=== PATIENT | female | born 1990 | race Caucasian/White ===

== ENCOUNTER → 2019-07-21 14:52 | Outpatient (CLI) | payer BC, SELFPAY ==
[2019-07-21 13:39] VITALS: BMI 29.5
[2019-07-21 15:22] LABS: Absolute Lymphocyte Count 2.48 X10^3/uL (0.83-4.51); Absolute Neutrophil Count 7.2 X10^3/uL (2.0-7.7); Basophil# 0.04 X10^3/uL; Basophil% 0.4 % (0-1); Eosinophil# 0.07 X10^3/uL; Eosinophils% 0.7 % (0-5); Hematocrit 41.7 % (37-47); Hemoglobin 14.3 g/dL (12.0-15.0); Lymphocyte # 2.48 X10^3/ul (4.0); Lymphocyte % 23.9 % (19-41); Mean Corp Hgb Conc 34.3 g/dL (32-36); Mean Corpuscular Hgb 28.6 pg (27.0-32.0); Mean Corpuscular Volume 83.4 fL (81-99); Mean Platelet Vol. 9.4 fl (6.2-12.0); Monocyte# 0.58 X10^3/uL; Monocyte% 5.6 % (0-10); NRBC Flagged by Analyzer 0 % (0-5); Neutrophil # 7.18 X10^3/uL (2.7-7.7); Neutrophil % 69.1 % (47-70); Platelet Count 241 K/mm3 (150-450); RBC Distribution Width CV 11.9 % (11.6-14.6); RBC Distribution Width SD 36.2 fl (35.1-43.9); White Blood Count 10.4 K/mm3 (4.4-11.0)
[2019-07-21 20:56] LABS: Chlamydia Trachomatis by PCR Negative (Negative); Neisserai gonorrhoeae by PCR Negative (Negative); Probe Check PASS; Sample Adequacy Control PASS; Specimen Processing Control PASS
[2019-07-22 03:08] LABS: Rapid Plasmin Reagin (RPR) NONREACTIVE (NONREACTIVE)
[2019-07-22 11:39] LABS: HIV - WCH Non-Reactive (Nonreactive); Hepatitis B Surface Antigen Non-Reactive (Nonreactive); Rubella IgG 58.5 IU/mL
== END ==
PROVIDERS: Referring Provider Obstetrics & Gynecology; Visit Provider Obstetrics & Gynecology
DX: Z34.81 Encounter for supervision of other normal pregnancy, first trimester (principal)
CPT/HCPCS: 36415; 85025; 86592; 86703; 86762; 86850; 86900; 86901; 87086; 87340; 87491; 87591

== ENCOUNTER → 2019-08-17 13:47 | Outpatient (CLI) | payer BC, SELFPAY ==
[2019-08-16 11:47] VITALS: BMI 29.5
--- NOTE | 2019-08-17 13:50 | US_ITS ---
STUDY: SECOND AND THIRD TRIMESTER OBSTETRICAL ULTRASOUND - LIMITED REASON FOR EXAM: Female, 28 years old. growth. LMP: 05/10/2019 PRIOR ULTRASOUND: None. TECHNIQUE: Transabdominal ultrasound evaluation was performed. FINDINGS: There is a single intrauterine fetus. position is variable. There is demonstrated cardiac activity with a heart rate of 147 bpm. There is a normal amniotic fluid volume. The placenta is posterior in location and is not low lying. There are Grade 0 placental changes. The cervix measures 4.67 cm in length. BIOMETRY: BPD: 2.62 cm: 14 weeks, 5 days HC: 9.75 cm: 14 weeks, 4 days AC: 8.12 cm: 14 weeks, 4 days FL: 1.35 cm: 14 weeks, 0 days Age by LMP: 14 weeks, 1 days. EMILEE by LMP: 02/14/2020. age by current US: 14 weeks, 4 days. EMILEE by current US: 02/11/2020. Estimated weight: 94 grams, +/- 14 grams, 42 percentile. The adnexal regions are not well visualized. US/OB Limited With Biometrics IMPRESSION: Single live intrauterine gestation at approximately 14 weeks and 4 days based on the current ultrasound. Electronically Signed: Grzegorz Mccullough, at 14:45 EST Tel , Service support ,
== END ==
PROVIDERS: Referring Provider Obstetrics & Gynecology; Visit Provider Obstetrics & Gynecology
DX: Z34.90 Encounter for supervision of normal pregnancy, unspecified, unspecified trimester (principal)
CPT/HCPCS: 76816

== ENCOUNTER → 2019-10-06 12:17 | Outpatient (CLI) | payer BC, SELFPAY ==
[2019-09-13 13:14] VITALS: BMI 29.5
--- NOTE | 2019-10-06 12:17 | US_ITS ---
STUDY: SECOND AND THIRD TRIMESTER OBSTETRICAL ULTRASOUND REASON FOR EXAM: Female, 28 years old. Anatomy LMP: May 10, 2019. TECHNIQUE: Transabdominal TECHNICAL QUALITY: Adequate. PRIOR ULTRASOUND: August 17, 2019. FINDINGS: There is a single intrauterine fetus. The fetus is in a transverse lie with the head on the maternal right side. There is demonstrated cardiac activity with a heart rate of 147 bpm. There is a normal amniotic fluid volume. The largest amniotic fluid pocket measures 3.98 cm. The placenta is posterior in location and is not low lying. There are Grade 0 placental changes. The cervix measures 3.18 cm in length. The adnexal regions are not visualized. BIOMETRY: BPD: 5.05 cm: 21 weeks, 2 days HC: 18.97 cm: 21 weeks, 1 days AC: 16.81 cm: 21 weeks, 5 days FL: 3.55 cm: 21 weeks, 1 days CI: 35.09 FL/BPD: 70.28 FL/HC: 18.73 FL/AC: 21.04 HC/AC: 1.13 age by current US: 21 weeks, 4 days. EMILEE by current US: February 12, 2020. Estimated weight: 4:30 grams, +/- 64 grams, 48 %. age by prior US: 21 weeks, 6 days. EMILEE by prior US: February 11, 2020. Age by LMP: 21 weeks, 2 days. EMILEE by LMP: February 14, 2020. ANATOMY: Gender: Male Cranium: Normal lateral ventricles. Normal choroid plexus. Normal cerebellum. Normal cisterna magna. Normal face, nose and lips. Chest: Normal 4-chamber heart. Abdomen/Pelvis: Normal diaphragm. Normal stomach. Normal abdominal wall. Normal cord insertion. Normal 3 vessel cord. Normal kidneys. Normal bladder. Spine: Normal cervical spine. Normal thoracic spine. Normal lumbar spine. Normal sacrum. Extremities: Normal bilateral upper extremities. Normal bilateral lower extremities. US/OB Anatomy Scan IMPRESSION: 1. Live single intrauterine at 21 weeks, 4 days. EMILEE is February 12, 2020. There is adequate interval growth since prior study. 2. FW 430 g. 3. Adequate amniotic fluid. 4. Posterior grade 0 placenta. 5. Transverse presentation. 6. No evidence of anatomic abnormality. Electronically Signed: Mark Clark DO at 22:45 EST Tel [phone], Service support ,
== END ==
PROVIDERS: Referring Provider Obstetrics & Gynecology; Visit Provider Obstetrics & Gynecology
DX: Z34.92 Encounter for supervision of normal pregnancy, unspecified, second trimester (principal); Z3A.21 21 weeks gestation of pregnancy
CPT/HCPCS: 76805

== ENCOUNTER → 2019-11-12 10:01 | Outpatient (CLI) | payer BC, SELFPAY ==
[2019-11-12 09:54] VITALS: BMI 29.5
[2019-11-12 10:44] LABS: Absolute Neutrophil Count 6.4 X10^3/uL (2.0-7.7); Basophil# 0.03 X10^3/uL; Basophil% 0.3 % (0-1); Eosinophil# 0.05 X10^3/uL; Eosinophils% 0.6 % (0-5); Hematocrit 37.1 % (37-47); Hemoglobin 12.5 g/dL (12.0-15.0); Lymphocyte % 19.2 % (19-41); Mean Corp Hgb Conc 33.7 g/dL (32-36); Mean Corpuscular Hgb 29.8 pg (27.0-32.0); Mean Corpuscular Volume 88.5 fL (81-99); Mean Platelet Vol. 8.9 fl (6.2-12.0); Monocyte# 0.56 X10^3/uL; Monocyte% 6.3 % (0-10); NRBC Flagged by Analyzer 0 % (0-5); Neutrophil # 6.42 X10^3/uL (2.7-7.7); Neutrophil % 72.5 % (47-70); Platelet Count 164 K/mm3 (150-450); RBC Distribution Width CV 13.2 % (11.6-14.6); Red Blood Count 4.19 M/mm3 (4.2-5.4); White Blood Count 8.9 K/mm3 (4.4-11.0)
[2019-11-12 11:01] LABS: Glucose Challenge Gest 1H 50g 97 mg/dL (70-140)
== END ==
PROVIDERS: Visit Provider Obstetrics & Gynecology
DX: Z34.90 Encounter for supervision of normal pregnancy, unspecified, unspecified trimester (principal)
CPT/HCPCS: 36415; 82950; 85025

== ENCOUNTER → 2020-01-21 16:25 | Outpatient (CLI) | payer BC, SELFPAY ==
[2020-01-21 09:51] VITALS: BMI 29.5
== END ==
PROVIDERS: Referring Provider Obstetrics & Gynecology; Visit Provider Obstetrics & Gynecology
DX: Z3A.36 36 weeks gestation of pregnancy (principal)
CPT/HCPCS: 87081

== ENCOUNTER → 2020-02-04 10:36 | Outpatient (CLI) | payer BC, SELFPAY ==
[2020-02-04 10:03] VITALS: BMI 29.5
[2020-02-04 10:39] LABS: ROM Internal Control Test YES-OK TO RESULT pt. (Internal QC)
[2020-02-04 10:59] LABS: ROM Patient Test Negative (Negative)
== END ==
PROVIDERS: Visit Provider Obstetrics & Gynecology
DX: Z3A.38 38 weeks gestation of pregnancy (principal)
CPT/HCPCS: 84112

== ENCOUNTER 2020-02-05 09:45 | Inpatient (IN) | payer BC, SELFPAY ==
[2020-02-04 10:03] VITALS: BMI 29.5
[2020-02-05] VITALS (41 sets, daily range): BP systolic 84–138; BP diastolic 52–85; PULSE 42–122; RESP 20; TEMP 36.6–38.4; O2SAT 97–100; BMI 31.6
[2020-02-05] MEDS: Lactated Ringers 500 ML 999 ML IV (10:45)
[2020-02-05 11:03] LABS: Absolute Lymphocyte Count 2.03 X10^3/uL (0.83-4.51); Absolute Neutrophil Count 11.6 X10^3/uL (2.0-7.7); Basophil# 0.02 X10^3/uL; Basophil% 0.1 % (0-1); Eosinophil# 0.04 X10^3/uL; Eosinophils% 0.3 % (0-5); Hemoglobin 13.7 g/dL (12.0-15.0); Lymphocyte # 2.03 X10^3/ul (4.0); Lymphocyte % 13.6 % (19-41); Mean Corp Hgb Conc 34.3 g/dL (32-36); Mean Corpuscular Volume 87.5 fL (81-99); Mean Platelet Vol. 9.7 fl (6.2-12.0); Monocyte# 1.18 X10^3/uL; Monocyte% 7.9 % (0-10); NRBC Flagged by Analyzer 0 % (0-5); Neutrophil # 11.62 X10^3/uL (2.7-7.7); Neutrophil % 77.8 % (47-70); Platelet Count 174 K/mm3 (150-450); RBC Distribution Width CV 13.4 % (11.6-14.6); RBC Distribution Width SD 41.9 fl (35.1-43.9); Red Blood Count 4.57 M/mm3 (4.2-5.4); White Blood Count 14.9 K/mm3 (4.4-11.0)
[2020-02-05] MEDS: Lactated Ringers 1,000 ML 50 ML IV (11:30)
[2020-02-05] MEDS: fentaNYL-bupivacaine (epidural) 100 ML BAG EPIDURAL (11:40)
[2020-02-05] MEDS: Ondansetron 4 MG/2 ML Vial IV (13:17)
--- NOTE | 2020-02-05 13:58 | PCM.HP.OB ---
- Problem List (1) Supervision of normal Status: Acute Qualifiers: Comment: PRR EMILEE 02/14/20 boy [facility] [place], [place] (2) Status: Acute Qualifiers: Comment: nipt-low risk male. carrier, and ntd screening declined. Anatomy US normal. History Date of Admission: 02/05/20 Final EMILEE: 02/14/20 Gestational age: 38 Weeks and 5 Days History of this : This is a 29 year-old, , at 38 weeks gestational age resents in active labor with regular contractions. She has had some spotting but no loss of fluid. She admits good movement. She has had an uncomplicated . Medical History: Medical History (Last Reviewed 02/04/20 @ 09:59 by Monica Brandt) Back pain M54.9 Difficulty balancing R29.818 Fatigue R53.83 Migraines G43.909 SOB (shortness of breath) R06.02 Status post normal childbirth O80 Surgical History: Surgical History (Last Reviewed 02/04/20 @ 09:59 by Monica Brandt) History of tonsillectomy Z90.89 Allergies No Known Allergies Allergy (Verified 02/05/20 10:10) Home Medications: Home Medications Pnv No.95/Ferrous Fum/Folic AC [ Formula] 1 ea PO DAILY 08/14/17 Smoking Status: Never smoker Alcohol: None Substance Use Type: Sleep Aides Number of Fetus(es): 1 NST - FHR Rate Baby A Baseline: 120 Variability:: Moderate Accelerations:: 15 x 15 Decelerations:: None NST Reactive:: Yes FHR Category:: Category I Uterine Activity:: q 3-4 History Past Pregnancies: Past Pregnancies Pregancy History 3 Elective abortions Hx Para 2 Spontaneous abortions Hx # Term Pregnancies Ectopic pregnancies Hx # Pregnancies Multiple births # of living children Past Pregnancies Del. Date Name GA/Weeks Outcome Route Bth Weight Infant Gen Labor Lgth Anesthesia Del Locatn Provider FOB Unknown 2011 [place] live - full term 7lbs Female epidural [place] Unknown 2017 [place] 39 live - full term 7lbs 12oz Male epidural [place] Labs: Mom's Labs & Results 02/05/20 02/05/20 10:45 10:45 WBC 14.9 H RBC 4.57 Hgb 13.7 Hct 40.0 MCV 87.5 MCH 30.0 MCHC 34.3 RDW Std Deviation 41.9 RDW Coeff of Violetta 13.4 Plt Count 174 MPV 9.7 Immature Gran % (Auto) 0.300 Neut % (Auto) 77.8 H Lymph % (Auto) 13.6 L [place] % (Auto) 7.9 Eos % (Auto) 0.3 Baso % (Auto) 0.1 Absolute Neuts (auto) 11.6 H Absolute Lymphs (auto) 2.03 Nucleated RBC % 0 Blood Type O POSITIVE Antibody Screen NEGATIVE Course Did the patient receive Yes care? Labs Blood Type: O RH: POSITIVE RPR/VDRL/Syphilis Nonreactive Rubella status Immune HbSAg Negative Date Done: 07/21/19 Chlamydia Negative Gonorrhea Negative HIV/AIDS Non-Reactive Group B Strep: Negative Current Obstetrical History Gestational Diabetes No Incompetent Cervix No Infertility No IUGR No Macrosomia No Hypertension/Pre-eclampsia No Placenta Previa/Abruption No PTL/PROM No Uterine anomaly No Oligohydramnios No Polyhydramnios No Multiple gestation No Past Medical History Asthma No Diabetes No Hypertension No Heart disease No Mitral valve prolapse No Neurologic/Seizure disorder/ No Migraines Kidney disease No Liver disease No Varicosities No Clotting disorders/Hx of DVT No Thyroid Dysfunction No Other medical diseases No Psychiatric disorders No Major trauma No Abnormal PAP smear Yes: onver a year ago; resolved Sleep apnea No Mammogram in the last 2 years No Social History Marital Status: Alleged father Vahe Hx Smoking No Smoking Status Never smoker Substance Use Type Sleep Aides What date/time did you last benadryl in Sep use any of the above? Expected Delivery Method: Spontaneous Vaginal Review of Systems Constitutional: Denies: Fever, Malaise Eyes: Denies: Blurred vision, Vision Change HEENT: Denies: Head Aches, Visual Changes Cardiovascular: Denies: Chest Pain, Palpitations Respiratory: Denies: Cough, Shortness of Breath, Wheezing Gastrointestinal: Denies: Abdominal Pain, Diarrhea, Nausea, Vomiting Genitourinary: Denies: Dysuria, Hematuria Musculoskeletal: Denies: Joint Pain, Muscle pain Skin: Denies: Lesions, Rash Neurological: Denies: Blurred vision, Focal weakness, Headaches Psychiatric: Denies: Anxiety, Depression Endocrine: Denies: Heat/ Cold Intolerance Hematologic/ Lymphatic: Denies: Easy Bruising, Easy Bleeding Physical Exam Vitals: Vital Signs Temp Pulse BP Pulse Ox 98.2 F 75 96/54 L 99 02/05/20 13:23 02/05/20 13:03 02/05/20 13:03 02/05/20 13:16 General: Alert, Cooperative, No apparent distress HEENT: Atraumatic, Normocephalic. Negative for: Thyromegaly, Lymphadenopathy Cardiovascular: Regular rate Lungs: Normal air movement Abdomen: Soft, Non Tender, Gravid Neurological: Deep Tendon Reflexes 2+/4 and Symmetrical, Neuro grossly intact. Negative for: Clonus [employer]: Normal external genitalia. Negative for: Vulvar lesions Estimated gestational size: Appropriate for gestational size Presentation: Cephalic Cervix Dilation (cm): 5 Assessment/Plan All Active Problems (Last Reviewed 02/04/20 @ 09:59 by Monica Brandt) Supervision of normal (Acute) (Acute) Bleeding in early (Resolved) URI, acute (Resolved) This is a 29 year-old, at 38 weeks gestational age presents IAL. .Patient presents IAL, plan expectant management for , Pitocin/AROM if needed. Pain management: Plans epidural. GBS neg. Management of any complications: None I have reviewed the [facility] and made any clinically relevant updates.
--- NOTE | 2020-02-05 15:07 | OP.PCM_ITS ---
Problem List (1) Supervision of normal Status: Acute Qualifiers: Comment: PRR EMILEE 02/14/20 boy deanna [place] Vahe (2) Status: Acute Qualifiers: Comment: nipt-low risk male. carrier, and ntd screening declined. Anatomy US normal. Vaginal Delivery Maternal Presentation: Active Labor 9-year-old G3, P2 at 38 weeks presents in active labor 5 cm dilated Amniotic Membrane Rupture Type: Artificial Amniotic Fluid Description: Clear Final EMILEE: 02/14/20 Gestational age: 38 Weeks and 5 Days Date of Procedure: 02/05/20 Pre-Operative Diagnosis: In active labor Post-Operative Diagnosis: Same Surgery/ Procedure Performed: Spontaneous Vaginal Delivery Type of Anesthesia: Epidural Description of Procedure: Patient began pushing and delivered the head in the BALTAZAR presentation. The head was delivered atraumatically . The anterior and posterior shoulders delivered without complication followed by the rest of the and the was placed on the maternal abdomen. Delayed cord clamping was employed for approximately 60 seconds. Cord was clamped and cut and gentle traction was applied to the cord and the placenta delivered spontaneously immediately following it was noted to be intact with three-vessel cord. The perineum and vagina were inspected and noted to have no laceration. EBL was 100 cc. Patient and infant tolerated delivery well. Presentation: BALTAZAR Placental Delivery Description: Spontaneous Placenta Disposition: [facility] Estimated Blood Loss: 100 A gender: Male Episiotomy Description: None Laceration: None Medications given after delivery: IV Pitocin Complications: None Multi Select Codes - Urinary/Genital Urinary/Genital CPT Codes: 67980 Vaginal Delivery [facility]
[2020-02-05] MEDS: Oxytocin 30 units/NS 500 ml 30 UNITS/500 ML IV.SOLN 334 UNITS IV (15:25)
[2020-02-05] MEDS: Naproxen 250 MG Tablet 500 MG PO (17:01)
[2020-02-05] MEDS: Acetaminophen 500 MG Tablet 1000 MG PO (19:02)
[2020-02-06 00:30] VITALS: BP 108/51; PULSE 62; RESP 18; TEMP 36.8
[2020-02-06 05:35] VITALS: BP 113/79; PULSE 71; RESP 18; TEMP 36.6
[2020-02-06] MEDS: oxyCODONE 5 MG Tablet PO (05:49)
--- NOTE | 2020-02-06 06:09 | NURSING ---
pt due to void at this time. RN to encourage pt to ambulate and void as soon as possible.
--- NOTE | 2020-02-06 07:35 | DCINST_ITS ---
Discharge Diet: No Restrictions Discharge Activity: Return to Normal Activity, May not drive while taking narcotic pain medications., May Shower May resume sexual activity in: 4-6 weeks Call your doctor if your incision/area has: Continuous Slow Oozing, Sudden Increased Bleeding, Increased Pain/ Swelling, Increased Redness, Foul Smelling Discharge Additional Instructions: If you experience any of the following, contact your healthcare provider. * Bleeding that soaks a pad every hour for 2 hours * Fever 100.4 or higher * Unrelieved incision or abdominal pain * Swelling, redness, discharge or bleeding from your incision or episiotomy site * Your incision begins to separate * Problems urinating (including inability to urinate or burning while urinating). * Visual changes * Severe headache * Flu-like symptoms * Pain or redness in one of both of your breasts * Pain, warmth, tenderness or swelling in your legs, especially the calf area * Frequent nausea and vomiting * Symptoms of depression or anxiety If you experience any of the following, call 911 or go to the nearest Emergency Room. * Chest pain * Problems breathing * Seizure activity * Partial or complete paralysis of a body part, slurred speech, weakness or drooping of the face, or a sudden inability to walk or hold your balance Allergies/Adverse Reactions: Allergies No Known Allergies Allergy (Verified 02/05/20 10:10) Medications to take at Discharge Pnv No.95/Ferrous Fum/Folic AC [ Formula] 1 ea PO DAILY 08/14/17 Please Follow Up With: Felisha Lopez MD - [phone] When: Call to make an appointment with your doctor in 6 weeks. If you had elevated Blood pressure or 4th degree laceration you will need to be seen in 2 weeks. Primary Care Physician: Care Physician,No Primary [Primary Care Provider] - Test Results: Test results from this visit will be discussed in further detail at your follow- up appointment, if applicable.
--- NOTE | 2020-02-06 07:35 | PN.OBGYN_ITS ---
Subjective: doing well no complaints pain controlled no CP SOB N V ambulating well tolerating po lochia moderate, going well - Physical Exam Vitals/I&O's: Vital Signs Temp Pulse Resp BP Pulse Ox 97.8 F 71 18 113/79 99 02/06/20 05:35 02/06/20 05:35 02/06/20 05:35 02/06/20 05:35 02/05/20 13:16 Oxygen Delivery Method Room Air Weight: 187 lb 6.287 oz Body Mass Index (BMI) 31.6 Intake and Output for Last 24 Hours 02/04/20 02/05/20 02/06/20 23:59 23:59 23:59 Intake Total 1204.17 / 1204.17 Output Total 250 / 250 300 / 300 Balance 954.17 / 954.17 -300 / -300 General: Alert, Oriented x3 Laboratory Results 02/05/20 10:45: WBC 14.9 H, RBC 4.57, Hgb 13.7, Hct 40.0, MCV 87.5, MCH 30.0, MCHC 34.3, RDW Std Deviation 41.9, RDW Coeff of Violetta 13.4, Plt Count 174, MPV 9.7, Immature Gran % (Auto) 0.300, Neut % (Auto) 77.8 H, Lymph % (Auto) 13.6 L, [place] % (Auto) 7.9, Eos % (Auto) 0.3, Baso % (Auto) 0.1, Absolute Neuts (auto) 11.6 H, Absolute Lymphs (auto) 2.03, Nucleated RBC % 0 02/05/20 10:45: Blood Type O POSITIVE, Antibody Screen NEGATIVE Current Medications Acetaminophen (Tylenol) 1,000 mg PO Q8H PRN PRN PRN Reason: Pain Score 1-3/10 Last Admin: 02/05/20 19:02 Dose: 1,000 mg Documented by: Bisacodyl (Dulcolax) 10 mg RECTAL UD PRN PRN Reason: If no BM Dibucaine (Dibucaine) 1 applic TOPICAL TID PRN PRN; Protocol PRN Reason: Discomfort Hydrocortisone (Hytone) 1 applic TOPICAL TID PRN PRN; Protocol PRN Reason: Discomfort Methylergonovine Maleate (Methergine) 0.2 mg IM X1 PRN PRN Reason: Excess bleeding/uterine atony Naproxen (Naprosyn) 500 mg PO Q8H PRN PRN PRN Reason: Pain Score 1-3/10 Last Admin: 02/05/20 17:01 Dose: 500 mg Documented by: Ondansetron HCl (Zofran) 4 mg IV Q4H PRN PRN PRN Reason: Nausea Oxycodone HCl (Oxyir) 5 - 10 mg PO Q4H PRN PRN PRN Reason: Pain Score 4-10/10 Last Admin: 02/06/20 05:49 Dose: 5 mg Documented by: Senna/Docusate Sodium (Senokot-S, Elizabeth-Colace) 1 - 2 tablet PO DAILY PRN PRN PRN Reason: Constipation Simethicone (Mylicon) 80 mg PO PCHS PRN PRN Reason: Indigestion/Stomach pain Sodium Chloride () 5 - 15 ml IV UD PRN PRN Reason: SALINE FLUSH Medical Necessity - Tobacco Use Smoking Status: Never smoker Assessment/Plan All Active Problems (Last Reviewed 02/04/20 @ 09:59 by Monica Brandt) Supervision of normal (Acute) (Acute) Bleeding in early (Resolved) URI, acute (Resolved) s/p PPD # 1 1. routine post delivery care 2. breast feeding- support given 3. rh positive 4. rubella immune
--- NOTE | 2020-02-06 07:35 | PCM.DCVAG ---
Discharge Diet: No Restrictions Discharge Activity: Return to Normal Activity, May not drive while taking narcotic pain medications., May Shower May resume sexual activity in: 4-6 weeks Call your doctor if your incision/area has: Continuous Slow Oozing, Sudden Increased Bleeding, Increased Pain/ Swelling, Increased Redness, Foul Smelling Discharge Additional Instructions: If you experience any of the following, contact your healthcare provider. Bleeding that soaks a pad every hour for 2 hours Fever 100.4 or higher Unrelieved incision or abdominal pain Swelling, redness, discharge or bleeding from your incision or episiotomy site Your incision begins to separate Problems urinating (including inability to urinate or burning while urinating). Visual changes Severe headache Flu-like symptoms Pain or redness in one of both of your breasts Pain, warmth, tenderness or swelling in your legs, especially the calf area Frequent nausea and vomiting Symptoms of depression or anxiety If you experience any of the following, call 911 or go to the nearest Emergency Room. Chest pain Problems breathing Seizure activity Partial or complete paralysis of a body part, slurred speech, weakness or drooping of the face, or a sudden inability to walk or hold your balance Allergies/Adverse Reactions: Allergies No Known Allergies Allergy (Verified 02/05/20 10:10) Medications to take at Discharge Pnv No.95/Ferrous Fum/Folic AC [ Formula] 1 ea PO DAILY 08/14/17 Please Follow Up With: Felisha Lopez MD - [phone] When: Call to make an appointment with your doctor in 6 weeks. If you had elevated Blood pressure or 4th degree laceration you will need to be seen in 2 weeks. Primary Care Physician: Care Physician,No Primary [Primary Care Provider] - Test Results: Test results from this visit will be discussed in further detail at your follow-up appointment, if applicable.
[2020-02-06 07:44] VITALS: BP 119/68; PULSE 72; RESP 18; TEMP 36.4
[2020-02-06 14:00] VITALS: BP 111/76; PULSE 76; RESP 18; TEMP 36.8
[2020-02-06] MEDS: Senna/Docusate Sodium 1 Tablet PO (17:27)
[2020-02-06] MEDS: Acetaminophen 500 MG Tablet 1000 MG PO (17:27)
== END 2020-02-06 17:50 | disposition home or self-care (01) | DRG 807 ==
PROVIDERS: Admitting Provider Obstetrics & Gynecology; Referring Provider Obstetrics & Gynecology; Visit Provider Obstetrics & Gynecology
DX: O80 Encounter for full-term uncomplicated delivery (principal); Z37.0 Single live birth; Z3A.38 38 weeks gestation of pregnancy
CPT/HCPCS: 59025; 59050; 85025; 86850; 86900; 86901; 99218; J7120; G0378; J2405

== ENCOUNTER → 2020-05-19 15:26 | Outpatient (CLI) | payer BC, SELFPAY ==
[2020-05-19 14:57] VITALS: BMI 31.6
[2020-05-19 16:51] LABS: Absolute Lymphocyte Count 2.49 X10^3/uL (0.83-4.51); Absolute Neutrophil Count 3.9 X10^3/uL (2.0-7.7); Basophil# 0.02 X10^3/uL; Basophil% 0.3 % (0-1); Eosinophil# 0.12 X10^3/uL; Eosinophils% 1.7 % (0-5); Hematocrit 44.4 % (37-47); Hemoglobin 14.6 g/dL (12.0-15.0); Lymphocyte # 2.49 X10^3/ul (4.0); Lymphocyte % 35.3 % (19-41); Mean Corp Hgb Conc 32.9 g/dL (32-36); Mean Corpuscular Hgb 29.2 pg (27.0-32.0); Mean Corpuscular Volume 88.8 fL (81-99); Mean Platelet Vol. 9.7 fl (6.2-12.0); Monocyte# 0.52 X10^3/uL; Monocyte% 7.4 % (0-10); NRBC Flagged by Analyzer 0 % (0-5); Neutrophil # 3.88 X10^3/uL (2.7-7.7); Platelet Count 259 K/mm3 (150-450); RBC Distribution Width CV 12.5 % (11.6-14.6); RBC Distribution Width SD 40.2 fl (35.1-43.9); White Blood Count 7.1 K/mm3 (4.4-11.0)
[2020-05-19 17:13] LABS: ALB/GLOB Ratio 0.8 RATIO (0.9-2.4); AST(SGOT) 18 U/L (15-37); Alanine Aminotransfer ALT/SGPT 22 U/L (13-56); Albumin, Serum 3.4 g/dL (3.2-5.0); Alkaline Phosphatase 67 U/L (45-117); Anion Gap 6 (5-15); BUN 12 mg/dL (7-18); BUN/Creat Ratio 13.2 RATIO (10-20); Calcium,Total 8.6 mg/dL (8.5-10.1); Chloride 104 mmol/L (98-107); Creatinine, Serum 0.91 mg/dL (0.55-1.02); EST Glomerular Filtration Rate 78 mL/min (>60); Est Glom Filt Rate - Afr Amer 95 mL/min (>60); Globulin 4.2 g/dL (2.2-4.2); Glucose 83 mg/dL (74-106); Potassium 4.4 mmol/L (3.5-5.1); Protein, Total 7.6 g/dL (6.4-8.2); Sodium Level 138 mmol/L (136-145); T4 Free Direct 1.23 ng/dL (0.76-1.46); Thyroid Stim Hormone (TSH) 1.23 uIU/mL (0.358-3.74)
== END ==
PROVIDERS: PCP Internal Medicine; Referring Provider Internal Medicine; Visit Provider Internal Medicine
DX: F41.9 Anxiety disorder, unspecified (principal); F32.9 Major depressive disorder, single episode, unspecified
CPT/HCPCS: 36415; 80053; 84439; 84443; 85025

== ENCOUNTER 2021-08-01 12:35 | Emergency (ER) | payer BC, SELFPAY ==
[2021-08-01 12:36] VITALS: BP 160/98; PULSE 102; RESP 18; TEMP 37; O2SAT 99; BMI 27.1
--- NOTE | 2021-08-01 13:02 | EX.ED.DYSGE1 ---
HPI History of Present Illness Chief Complaint: Dizziness Detail of Chief Complaint: Not feeling well started last evening. Informant: patient Narrative Narrative: Patient presents to the emergency department complaint of not feeling well today. Patient states that she was burping throughout the night and having indigestion. Patient had one episode of vomiting this morning but was more just bile acid. Patient woke up and felt like she could barely get out of bed because of fatigue. She complained of a headache. Complains of some pain to her right lower quadrant. She denies urinary symptoms. She has had the Covid vaccine. She has not missed a menstrual period and is on an oral contraceptive. Patient states that her son had an illness last week with some vomiting. Patient denies any other sick contacts. [facility] Medical History (Updated 08/01/21 @ 15:[address] Marcie Manuel, ) Back pain Difficulty balancing Fatigue Migraines SOB (shortness of breath) Status post normal childbirth Home Medications norgestimate-ethinyl estradiol 0.18 mg/0.215mg/0.25mg-35 mcg(28)tablet 1 tab PO DAILY #84 tab 07/17/21 [Rx Last Taken Unknown] Allergy/AdvReac Type Severity Reaction Status Date / Time No Known Allergies Allergy Verified 08/01/21 12:38 Family History Other Arthritis Asthma CVA (cerebral vascular accident) Cancer Diabetes High cholesterol Hypertension Multiple myeloma Myocardial infarction Seizures Surgical History History of tonsillectomy Social History (Updated 07/24/20 @ 09:35 by Grzegorz MILLER, PA) Smoking Status: Never smoker alcohol intake: never substance use type: does not use caffeine: Yes what type of physical activity do you participate in: walking frequency: 3-4 times per week seatbelt use: always do you feel safe at home: Yes additional social history: Va[employer]- [place] Stay at home mom ROS ROS ED ROS Narrative Dizziness Constitutional Constitutional ED: Reports systems reviewed and no addt'l complaints, except as documented; Denies body ache(s), change in weight or chills Eyes Eyes: Denies acute decrease in peripheral vision, change in vision, double vision or loss of vision ENT ENT ED: Reports none; Denies ear pain, lip swelling, loss taste/smell, neck pain, otalgia or sore throat Cardiovascular Cardiovascular: Reports none; Denies abdominal pain, chest pain with activity, leg edema, lightheadedness, palpitations, rapid heart rate or syncope Respiratory/Chest Respiratory/Chest: Reports none; Denies change in mental status, dry cough, dyspnea, hemoptysis, shortness of breath at rest or shortness of breath with exertion Gastrointestinal Gastrointestinal: Reports none, abdominal pain, nausea and vomiting; Denies change in stool character, diarrhea, hematemesis, hematochezia, melena or rectal bleeding Genitourinary Genitourinary ED: Reports none; Denies abdominal discomfort, anuria, dysuria, genital pain or polyuria Musculoskeletal Musculoskeletal: Reports none; Denies arthralgias, back pain, difficulty walking, extremity pain, muscle weakness or myalgias Integumentary Reports none; Denies abscess or rash Neurologic Neurologic: Reports none and headache(s); Denies abnormal gait, confusion, focal weakness, frequent falls, loss of vision, numbness, paresthesias, radicular pain, vertigo or weakness Psychiatric Psychiatric: Reports systems reviewed and no addt'l complaints, except as documented and none; Denies behavioral changes, confusion, difficulty concentrating, hallucinations, suicidal ideation, tactile hallucinations or visual hallucinations Endocrine Endocrinology: Denies none, cold intolerance, excessive sweating, fatigue or heat intolerance Hematologic/Lymphatic Hematologic/Lymphatic: Reports none; Denies anemia, easy bleeding or easy bruising Allergic/Immunologic Allergic/Immunologic ED: Denies as per HPI, none, lip swelling, mouth swelling, throat swelling, tongue swelling or hives EXAM Physical Exam Const Vital Signs: 08/01/21 12:36 08/01/21 13:13 08/01/21 15:08 Temperature 98.6 F Temperature Source Temporal Pulse Rate 102 H 91 Respiratory Rate 18 18 Respiratory Effort Normal Non-Labored Respiratory Pattern Normal Blood Pressure 160/98 H 144/91 H Blood Pressure Mean 118 108 Pulse Ox 99 99 Oxygen Delivery Method Room Air Room Air Positive well nourished and well developed General Appearance ED: well developed and NAD HEENT Reports TM's clear and moist mucous membranes normocephalic and atraumatic; Negative for trauma or tenderness Tympanic Membrane ED: Yes TM's clear Eyes PERRL and EOMs intact bilaterally General Eye ED: Negative for pale conjunctiva or scleral icterus Neck no lymphadenopathy, supple and no JVD General: Negative for tenderness Chest Wall inspection of chest normal and palpation of chest normal Chest: Negative for tenderness Resp normal respiratory effort and clear to auscultation bilaterally Effort and Inspection: Negative for respiratory distress or pain with movement Auscultation: Negative for rhonchi, wheezes or diminished lung sounds Cardio regular rate, regular rhythm, S1 normal heart sound, S2 normal heart sound and no murmurs Peripheral Pulses: pulses 2+ throughout GI normal to inspection, nondistended, normoactive bowel sounds, soft to palpation, non-tender, non-distended and no masses GI Narrative: Patient has tenderness palpation of her right lower quadrant with some guarding. No rebound, rigidity, peritoneal signs. Back/Spine no CVA tenderness and no thoracic nor lumbar tenderness Extremity normal to inspection General Extremety ED: Negative for edema General Extremity: Negative for edema Neuro oriented x3, CN's II-XII intact bilaterally, no sensory deficits noted and gait normal Sensorium / Orientation: awake, alert, oriented to person, oriented to place and oriented to time Motor Exam: strength 5/5 throughout and strength abnormal Psych mental status grossly normal Skin no rashes or lesions noted and no wounds MDM MDM MDM Narrative Medical decision making narrative: IV line established on arrival. Patient was given Toradol 30 mg IV. Patient was given normal saline. Lab work-up was unremarkable. Because of the episode of vomiting with tenderness over the right lower quadrant that was localized a CT scan of the abdomen pelvis with IV and p.o. contrast was ordered which was negative for any acute disease process and the appendix was visualized and was normal. She was incidentally noted to have a hemangioma in the liver. Patient is feeling well at this time and will be discharged to home. I suspect likely viral syndrome as the etiology of her symptoms. Lab Data Attestation: I reviewed the patient's lab results. Labs: Laboratory Results - last 24 hr 08/01/21 08/01/21 08/01/21 13:20 13:20 13:20 WBC 7.0 RBC 4.98 Hgb 14.3 Hct 43.0 MCV 86.3 MCH 28.7 MCHC 33.3 RDW Std Deviation 36.0 RDW Coeff of [place] 11.5 L Plt Count 172 MPV 9.6 Immature Gran % (Auto) 0.300 Neut % (Auto) 81.5 H Lymph % (Auto) 12.1 L Rich % (Auto) 5.5 Eos % (Auto) 0.3 Baso % (Auto) 0.3 Absolute Neuts (auto) 5.7 Absolute Lymphs (auto) 0.85 Nucleated RBC % 0 Sodium 137 Potassium 3.7 Chloride 108 H Carbon Dioxide 23.0 Anion Gap 6 BUN 10 Creatinine 0.73 Estim Creat Clear Calc 103.24 Est GFR (MDRD) Af Amer 122 Est GFR (MDRD) Non-Af 101 BUN/Creatinine Ratio 13.7 Glucose 94 Calcium 8.6 Total Bilirubin 0.70 AST 18 ALT 19 Alkaline Phosphatase 61 Total Protein 7.3 Albumin 3.3 Globulin 4.0 Albumin/Globulin Ratio 0.8 L Serum , Qual NEGATIVE Urine Color Urine Clarity Urine pH Ur Specific [place] Urine Protein Urine Glucose (UA) Urine Ketones Urine Occult Blood Urine Nitrite Urine Bilirubin Urine Urobilinogen Ur Leukocyte Esterase Urine RBC Urine WBC Ur Squamous Epith Cells Urine Bacteria Urine Mucus 08/01/21 13:20 WBC RBC Hgb Hct MCV MCH MCHC RDW Std Deviation RDW Coeff of [place] Plt Count MPV Immature Gran % (Auto) Neut % (Auto) Lymph % (Auto) Rich % (Auto) Eos % (Auto) Baso % (Auto) Absolute Neuts (auto) Absolute Lymphs (auto) Nucleated RBC % Sodium Potassium Chloride Carbon Dioxide Anion Gap BUN Creatinine Estim Creat Clear Calc Est GFR (MDRD) Af Amer Est GFR (MDRD) Non-Af BUN/Creatinine Ratio Glucose Calcium Total Bilirubin AST ALT Alkaline Phosphatase Total Protein Albumin Globulin Albumin/Globulin Ratio Serum , Qual Urine Color Yellow Urine Clarity Sl. Cloudy Urine pH 5.0 Ur Specific [place] 1.020 Urine Protein 15 H Urine Glucose (UA) Normal Urine Ketones 15 H Urine Occult Blood 50 H Urine Nitrite Negative Urine Bilirubin Negative Urine Urobilinogen Normal Ur Leukocyte Esterase Negative Urine RBC 0-5 SEEN Urine WBC 0 SEEN Ur Squamous Epith Cells 0-5 SEEN Urine Bacteria 1+ Urine Mucus 0 SEEN Radiography Diagnostic Testing: Clinical Impression(s) from Imaging Studies Abdomen/Pelvis CT 08/01/21 13:04 IMPRESSION: Fine suggestively 1.9 cm x 1.6 cm hemangioma along the posterior medial aspect of the right lobe of the liver. Electronically Signed: Isidro Velasquez MD at 15:13 EST , Service support , Discharge Plan Triage Chief Complaint: Dizziness ED Provider: Marcie Manuel Dx/Rx/DC Orders Clinical Impression: Viral syndrome Instructions: ED Viral Syndrome (Adult) Prescriptions: No Action norgestimate-ethinyl estradiol [Tri Femynor] 0.18/0.215/0.25 mg-35 mcg (28) tablet 1 tab PO DAILY Qty: 84 RF: 0 Primary Care Provider: Velia Steel Referrals: Velia Steel MD [Primary Care Provider] - 3-5 Days Disposition Disposition: Home, Self Care
--- NOTE | 2021-08-01 13:04 | CT_ITS ---
STUDY: CT ABDOMEN AND PELVIS WITH CONTRAST REASON FOR EXAM: Female, 30 years old. Abdominal pain. Dizziness with nausea and vomiting. RADIATION DOSAGE (If Supplied By Facility): CTDIvol = ( 11.25 ) mGy, DLP = ( 660.93 ) mGycm TECHNIQUE: Transaxial images were obtained from the dome of the diaphragm to the symphysis pubis with oral contrast. Oral and amp;amp; IV Gastrografin and amp;amp; 100mL Isovue-370 was administered. Sagittal and coronal images were reconstructed. Individualized dose optimization techniques were used for this CT. COMPARISON: Comparison is made with prior study dated 07/07/2015. FINDINGS: The visualized lung bases are unremarkable. The visualized portions of the heart are within normal limits. There is a 1.9cm x 1.6 cm peripherally enhancing nodule along the posterior medial aspect of the right lobe of the liver superiorly suggestive of a hemangioma. Normal gallbladder and extrahepatic biliary system. Normal spleen. Normal pancreas. Normal bilateral adrenal glands. Normal right kidney. Normal left kidney. Normal visualized stomach. Normal small intestine. Normal colon. The appendix is visualized and appears normal. Normal abdominal aorta. Normal inferior vena cava. Normal retroperitoneum. Normal urinary bladder. Normal abdominal wall. Normal osseous structures. CT/Abdomen/Pelvis WITH Contrast IMPRESSION: Fine suggestively 1.9 cm x 1.6 cm hemangioma along the posterior medial aspect of the right lobe of the liver. Electronically Signed: Isidro Velasquez MD at 15:13 EST , Service support ,
[2021-08-01] MEDS: Ketorolac 30 MG/ML Syringe IV (13:26)
[2021-08-01 13:34] LABS: Mucous, Urine 0 SEEN /hpf (<or=2+); White Blood Cells 0 SEEN /hpf (0-5)
[2021-08-01 13:37] LABS: Absolute Lymphocyte Count 0.85 X10^3/uL (0.83-4.51); Absolute Neutrophil Count 5.7 X10^3/uL (2.0-7.7); Basophil# 0.02 X10^3/uL; Basophil% 0.3 % (0-1); Eosinophil# 0.02 X10^3/uL; Eosinophils% 0.3 % (0-5); Hemoglobin 14.3 g/dL (12.0-15.0); Lymphocyte # 0.85 X10^3/ul (0.83-4.51); Lymphocyte % 12.1 % (19-41); Mean Corp Hgb Conc 33.3 g/dL (32-36); Mean Corpuscular Hgb 28.7 pg (27.0-32.0); Mean Corpuscular Volume 86.3 fL (81-99); Mean Platelet Vol. 9.6 fl (6.2-12.0); Monocyte# 0.39 X10^3/uL; Monocyte% 5.5 % (0-10); NRBC Flagged by Analyzer 0 % (0-5); Neutrophil # 5.74 X10^3/uL (2.7-7.7); Neutrophil % 81.5 % (47-70); Platelet Count 172 K/mm3 (150-450); RBC Distribution Width CV 11.5 % (11.6-14.6); Red Blood Count 4.98 M/mm3 (4.2-5.4)
[2021-08-01 13:43] LABS: Color, Urine Yellow (Yellow); Glucose, Dipstick Normal (Normal); Ketone-Dipstick 15 mg/dl (Negative); Leukocyte Esterase-Dipstick Negative /ul (Negative); Nitrite-Dipstick Negative (Negative); Occult Blood-Urine 50 /ul (Negative); Protein-Dipstick 15 mg/dl (Negative); Urine Bilirubin Dipstick Negative (Negative); Urine Clarity Sl. Cloudy (Clear); Urine Urobilinogen Normal (Normal)
[2021-08-01 13:54] LABS: ALB/GLOB Ratio 0.8 RATIO (0.9-2.4); AST(SGOT) 18 U/L (15-37); Alanine Aminotransfer ALT/SGPT 19 U/L (13-56); Albumin, Serum 3.3 g/dL (3.2-5.0); Alkaline Phosphatase 61 U/L (45-117); Anion Gap 6 (5-15); BUN 10 mg/dL (7-18); BUN/Creat Ratio 13.7 RATIO (10-20); Calcium,Total 8.6 mg/dL (8.5-10.1); Chloride 108 mmol/L (98-107); Creatinine, Serum 0.73 mg/dL (0.55-1.02); EST Glomerular Filtration Rate 101 mL/min (>60); Est Glom Filt Rate - Afr Amer 122 mL/min (>60); Estimated Creatinine Clearance 103.24 ml/min; Glucose 94 mg/dL (74-106); Potassium 3.7 mmol/L (3.5-5.1); Protein, Total 7.3 g/dL (6.4-8.2); Sodium Level 137 mmol/L (136-145)
[2021-08-01 13:59] LABS: Internal QC Validated? YES +Cl - CLEAR BKGD; Pregnancy, Serum, hCG Quali. NEGATIVE Negative
[2021-08-01 14:03] LABS: Red Blood Cells-Urine 0-5 SEEN /hpf (0-5)
[2021-08-01 14:04] LABS: Bacteria 1+ /hpf (None Seen); Squamous Epithelial Cells - UA 0-5 SEEN /hpf (5-10)
[2021-08-01 15:08] VITALS: BP 144/91; PULSE 91; RESP 18; O2SAT 99
[2021-08-01 15:53] VITALS: RESP 16
== END 2021-08-01 15:54 | disposition home or self-care (01) ==
PROVIDERS: Emergency Provider Emergency Medicine; PCP Internal Medicine
DX: B34.9 Viral infection, unspecified (principal); Z79.899 Other long term (current) drug therapy
CPT/HCPCS: 74177; 80053; 81001; 84703; 85025; 87426; 96361; 96374; 99283; J7030; Q9967

== ENCOUNTER 2021-12-04 12:40 | Outpatient (CLI) | payer BC, SELFPAY ==
--- NOTE | 2021-12-04 12:49 | RAD_ITS ---
STUDY: X-RAY - THORACIC SPINE REASON FOR EXAM: Female, 31 years old. Pain. TECHNIQUE: 2 view(s) of the thoracic spine were obtained on 3 images. COMPARISON: None. FINDINGS: Normal kyphosis of the thoracic spine. There is no substantial scoliosis. Normal thoracic vertebrae and endplates. Normal disc space heights. The soft tissue structures are unremarkable. RAD/Thoracic Spine 3 Views IMPRESSION: Normal x-ray examination of the thoracic spine. No acute abnormality, evidence of erosive change or fusion. Electronically Signed: Aguila Stevens MD at 13:24 EDT ,
--- NOTE | 2021-12-04 12:50 | RAD_ITS ---
STUDY: X-RAY - CERVICAL SPINE REASON FOR EXAM: Female, 31 years old. Neck pain. TECHNIQUE: 2 view(s) of the cervical spine were obtained. COMPARISON: None FINDINGS: Normal anterior atlantoaxial articulation. Normal odontoid process. Normal cervical lordosis. Normal vertebral bodies and endplates. Normal disc space heights. Normal visualized intervertebral neuroforamina. The soft tissue structures are unremarkable. RAD/Cerv Spine 2 or 3 Views IMPRESSION: Normal x-ray examination of the visualized cervical spine. No acute abnormality, evidence of erosive changes or fusion. Electronically Signed: Aguila Stevens MD at 13:23 EDT ,
--- NOTE | 2021-12-04 12:50 | RAD_ITS ---
STUDY: X-RAY - LUMBAR SPINE REASON FOR EXAM: Female, 31 years old. Back pain. TECHNIQUE: 2 view(s) of the lumbar spine were obtained. COMPARISON: None FINDINGS: Normal lumbar lordosis. There is no substantial scoliosis. There is a normal alignment of the vertebrae. Mild arthrosis of the sacroiliac joints, right greater than left. Normal vertebral bodies and endplates. Partial sacralization of the transverse processes of L5, a normal variant, which may be symptomatic. Normal disc space heights. Phleboliths. RAD/Lumbar Spine 2 or 3 Views IMPRESSION: Mild arthrosis of the sacroiliac joints, right greater than left. Partial sacralization of the transverse processes of the L5 vertebral body which may be asymptomatic variant. No acute abnormality. Electronically Signed: Aguila Stevens MD at 13:25 EDT ,
== END 2021-12-04 23:59 | disposition home or self-care (01) ==
LOC: MTRAD 12:42
PROVIDERS: PCP Internal Medicine; Referring Provider Chiropractor Orthopedic; Visit Provider Chiropractor Orthopedic
DX: M41.9 Scoliosis, unspecified (principal)
CPT/HCPCS: 72040; 72072; 72100

== ENCOUNTER → 2022-02-20 | Outpatient (CLI) | payer BC, SELFPAY ==
[2022-02-20 16:50] LABS: Absolute Lymphocyte Count 2.61 X10^3/uL (0.83-4.51); Absolute Neutrophil Count 4.6 X10^3/uL (2.0-7.7); Basophil# 0.03 X10^3/uL; Basophil% 0.4 % (0-1); Eosinophil# 0.15 X10^3/uL; Eosinophils% 1.9 % (0-5); Hematocrit 44.4 % (37-47); Hemoglobin 14.6 g/dL (12.0-15.0); Lymphocyte # 2.61 X10^3/ul (0.83-4.51); Lymphocyte % 32.4 % (19-41); Mean Corp Hgb Conc 32.9 g/dL (32-36); Mean Corpuscular Hgb 28.3 pg (27.0-32.0); Mean Platelet Vol. 9.5 fl (6.2-12.0); Monocyte# 0.62 X10^3/uL; Monocyte% 7.7 % (0-10); NRBC Flagged by Analyzer 0 % (0-5); Neutrophil # 4.62 X10^3/uL (2.7-7.7); Neutrophil % 57.4 % (47-70); Platelet Count 285 K/mm3 (150-450); RBC Distribution Width CV 12.6 % (11.6-14.6); RBC Distribution Width SD 39.6 fl (35.1-43.9); Red Blood Count 5.16 M/mm3 (4.2-5.4); White Blood Count 8.1 K/mm3 (4.4-11.0)
[2022-02-20 17:16] LABS: ALB/GLOB Ratio 0.8 RATIO (0.9-2.4); AST(SGOT) 17 U/L (15-37); Alanine Aminotransfer ALT/SGPT 23 U/L (13-56); Albumin, Serum 3.5 g/dL (3.2-5.0); Alkaline Phosphatase 57 U/L (45-117); Anion Gap 6 (5-15); BUN 8 mg/dL (7-18); Calcium,Total 8.8 mg/dL (8.5-10.1); Chloride 105 mmol/L (98-107); Cholesterol 232 mg/dL (200); EST Glomerular Filtration Rate 90 mL/min (>60); Est Glom Filt Rate - Afr Amer 109 mL/min (>60); Globulin 4.2 g/dL (2.2-4.2); Glucose 93 mg/dL (74-106); High Density Lipoprotein 59 mg/dL; Potassium 4.2 mmol/L (3.5-5.1); Protein, Total 7.7 g/dL (6.4-8.2); Sodium Level 138 mmol/L (136-145); T4 Free Direct 0.98 ng/dL (0.76-1.46); Thyroid Stim Hormone (TSH) 0.64 uIU/mL (0.358-3.74); Triglycerides 257 mg/dL; Very Low Density Lipoprotein 51 mg/dL (5-40)
== END | disposition home or self-care (01) ==
LOC: BIMLAB 15:56
PROVIDERS: PCP Internal Medicine; Visit Provider Internal Medicine
DX: I10 Essential (primary) hypertension (principal)
CPT/HCPCS: 36415; 80053; 80061; 84439; 84443; 85025

== ENCOUNTER → 2022-03-06 | Outpatient (CLI) | payer BC, SELFPAY ==
--- NOTE | 2022-03-06 12:46 | EKG12_ITS ---
Test Reason : HYPERTENSION Blood Pressure : / mmHG Vent. Rate : 077 BPM Atrial Rate : 077 BPM P-R Int : 122 ms QRS Dur : 084 ms QT Int : 360 ms P-R-T Axes : 065 042 045 degrees QTc Int : 407 ms Normal sinus rhythm Normal ECG Confirmed by VENKATESH NORTON, SHAILA ([id number]), features editor NAKITA BALBUENA ([id number]) on 03/07/2022 10:17:52 AM Referred By: Velia Steel Confirmed By:SHAILA RIDDLE MD
== END | disposition home or self-care (01) ==
LOC: PSN 12:45
PROVIDERS: PCP Internal Medicine; Referring Provider Internal Medicine; Visit Provider Internal Medicine
DX: I10 Essential (primary) hypertension (principal)
CPT/HCPCS: 93005

== ENCOUNTER → 2022-05-31 | Outpatient (CLI) | payer BC, SELFPAY ==
--- NOTE | 2022-05-31 17:17 | MRI_ITS ---
STUDY: MRI CERVICAL SPINE WITHOUT CONTRAST REASON FOR EXAM: Female, 31 years old. CERVICAL RADICULOPATHY TECHNIQUE: Standardized fat and water weighted pulse sequences were obtained in the sagittal and axial planes. COMPARISON: CT of the cervical spine 08/15/2017 FINDINGS: Normal foramen magnum and brainstem-cervical cord junction. Normal craniovertebral junction. Normal anterior atlantoaxial articulation. Normal odontoid process. Decreased cervical lordosis. Normal vertebral bodies and posterior osseous elements. C2-3: Normal endplates. Normal disc height, signal and morphology. Normal central canal and intervertebral neural foramina. C3-4: Normal endplates. Normal disc height, signal and morphology. Normal central canal and intervertebral neural foramina. C4-5: Normal endplates. Normal disc height, signal and minor bulging of the disc.. Normal central canal and intervertebral neural foramina. C5-6: Normal endplates. Normal disc height, signal and minor bulging of the disc. Normal central canal and intervertebral neural foramina. C6-7: Normal endplates. Normal disc height, signal and morphology. Normal central canal and intervertebral neural foramina. C7-T1: Normal endplates. Normal disc height, signal and morphology. Normal central canal and intervertebral neural foramina. Normal cervical cord. Normal visualized soft tissue structures. MRI/Spine Cervical (Routine) IMPRESSION: No evidence for acute fracture or other significant bony pathology.. Minor bulging of the discs at C4-5 and C5-6 without appreciable spinal stenosis or cord compression Electronically Signed: Parminder Strong MD at 20:31 EDT ,
== END | disposition home or self-care (01) ==
LOC: MRI 17:02
PROVIDERS: PCP Internal Medicine; Visit Provider Anesthesiology Pain Medicine
DX: M54.12 Radiculopathy, cervical region (principal)
CPT/HCPCS: 72141

== ENCOUNTER 2022-06-25 10:36 | Emergency (ER) | payer BC, SELFPAY ==
[2022-06-25 10:37] VITALS: BP 123/89; PULSE 90; RESP 16; TEMP 36.6; O2SAT 100; BMI 30.2
--- NOTE | 2022-06-25 11:54 | ED.RN ---
PT CALLED INTO TRIAGE TO OBTAIN LAB WORK AND IV START. PT NO LONGER PRESENT IN THE DEPARTMENT. LWBS AT 1155.
== END 2022-06-25 11:54 | disposition left against medical advice (07) ==
LOC: ED 12:05
PROVIDERS: PCP Internal Medicine
DX: Z53.21 Procedure and treatment not carried out due to patient leaving prior to being seen by health care provider (principal)
CPT/HCPCS: 99281

== ENCOUNTER → 2022-06-28 | Outpatient (CLI) | payer BC, SELFPAY ==
[2022-06-28 17:13] LABS: Absolute Lymphocyte Count 2.61 X10^3/uL (0.83-4.51); Absolute Neutrophil Count 5.5 X10^3/uL (2.0-7.7); Basophil# 0.02 X10^3/uL; Basophil% 0.2 % (0-1); Eosinophil# 0.19 X10^3/uL; Eosinophils% 2.2 % (0-5); Hematocrit 40.9 % (37-47); Hemoglobin 13.6 g/dL (12.0-15.0); Lymphocyte # 2.61 X10^3/ul (0.83-4.51); Lymphocyte % 29.7 % (19-41); Mean Corp Hgb Conc 33.3 g/dL (32-36); Mean Corpuscular Hgb 28.6 pg (27.0-32.0); Mean Corpuscular Volume 86.1 fL (81-99); Mean Platelet Vol. 10.2 fl (6.2-12.0); Monocyte% 4.6 % (0-10); NRBC Flagged by Analyzer 0 % (0-5); Neutrophil # 5.53 X10^3/uL (2.7-7.7); Platelet Count 274 K/mm3 (150-450); RBC Distribution Width CV 11.9 % (11.6-14.6); RBC Distribution Width SD 37.8 fl (35.1-43.9); Red Blood Count 4.75 M/mm3 (4.2-5.4); White Blood Count 8.8 K/mm3 (4.4-11.0)
[2022-06-28 17:18] LABS: Erythrocyte Sedimentation Rate 8 mm/hr (0-30)
[2022-06-28 17:40] LABS: ALB/GLOB Ratio 0.8 RATIO (0.9-2.4); AST(SGOT) 17 U/L (15-37); Alanine Aminotransfer ALT/SGPT 21 U/L (13-56); Albumin, Serum 3.5 g/dL (3.2-5.0); Alkaline Phosphatase 62 U/L (45-117); Anion Gap 8 (5-15); BUN 12 mg/dL (7-18); BUN/Creat Ratio 15.3 RATIO (10-20); CRP 6.62 mg/L (0.0-3.0); Calcium,Total 8.9 mg/dL (8.5-10.1); Chloride 105 mmol/L (98-107); Creatinine, Serum 0.78 mg/dL (0.55-1.02); EST Glomerular Filtration Rate 92 mL/min (>60); Est Glom Filt Rate - Afr Amer 111 mL/min (>60); Globulin 4.2 g/dL (2.2-4.2); Glucose 112 mg/dL (74-106); LDH 162 U/L (84-246); Potassium 3.7 mmol/L (3.5-5.1); Protein, Total 7.7 g/dL (6.4-8.2); Sodium Level 138 mmol/L (136-145)
[2022-07-01 13:08] LABS: Anti-Centromere B Ab <0.2 AI (0.0-0.9); Anti-Chromatin <0.2 AI (0.0-0.9); Anti-Jo <0.2 AI (0.0-0.9); Anti-Scleroderma-70 AB <0.2 AI (0.0-0.9); RNP Ab <0.2 AI (0.0-0.9); SJOGREN'S Anti-SS-A test < 0.2 AI (0.0-0.9); SJOGREN'S Anti-SS-B test < 0.2 AI (0.0-0.9); Smith Ab <0.2 AI (0.0-0.9)
[2022-07-01 15:08] LABS: Endomysial Antibody IgA Negative (Negative)
[2022-07-01 16:48] LABS: Anti-dsDNA Ab 1 IU/mL (0-9)
[2022-07-02 08:54] LABS: Immunoglobulin A 292 mg/dL (87-352); t-Transglutaminase IgA <2 U/mL (0-3)
[2022-07-07 13:06] LABS: Albumin 3.7 g/dL (2.9-4.4); Alpha-1-Globulins 0.3 g/dL (0.0-0.4); Alpha-2-Globulins 0.8 g/dL (0.4-1.0); Cytoplasmic Ab (C-ANCA) <1:20 titer (Neg:<1:20); Dopamine, Pl <30 pg/mL (0-48); Epinephrine, Pl <15 pg/mL (0-62); Gamma Globulin 1.1 g/dL (0.4-1.8); Immunoglobulin A 275 mg/dL (87-352); Immunoglobulin E 6 IU/mL (6-495); Immunoglobulin G 1004 mg/dL (586-1602); Immunoglobulin M 134 mg/dL (26-217); Norepinephrine, Pl 249 pg/mL (0-874); PROEL- TOTAL PROTEIN 7.2 g/dL (6.0-8.5)
[2022-07-08 19:30] LABS: Gastrin, Serum 20 pg/mL (0-115); Perinuclear Ab (P-ANCA) <1:20 titer (Neg:<1:20)
== END | disposition home or self-care (01) ==
PROVIDERS: PCP Internal Medicine; Referring Provider Internal Medicine Gastroenterology; Visit Provider Internal Medicine Gastroenterology
DX: R10.9 Unspecified abdominal pain (principal)
CPT/HCPCS: 36415; 80053; 82384; 82784; 82785; 82941; 83516; 83615; 84165; 85025; 85652; 86140; 86225; 86235; 86255; 86256; 86334

== ENCOUNTER → 2022-07-02 | Outpatient (CLI) | payer BC, SELFPAY ==
[2022-07-07 20:07] LABS: 5-HIAA, 24UR 4.2 mg/24 hr (0.0-14.9)
[2022-07-08 19:24] LABS: 5-HIAA, UR 3.1 mg/L (Undefined); Pancreatic Elastase, Fecal > 500 (>200)
[2022-07-12 13:01] LABS: Calprotectin, Stool <16 ug/g (0-120); Fats, Neutral Normal (.); Fats, Total Increased (.)
== END | disposition home or self-care (01) ==
LOC: LAB 09:25 → LABSPEC 09:25
PROVIDERS: PCP Internal Medicine; Referring Provider Internal Medicine Gastroenterology; Visit Provider Internal Medicine Gastroenterology
DX: K58.9 Irritable bowel syndrome, unspecified (principal); R10.9 Unspecified abdominal pain
CPT/HCPCS: 81050; 82653; 82705; 83497; 83630; 83993; 87506

== ENCOUNTER 2022-07-11 16:30 | Outpatient (RCR) | payer BC, SELFPAY ==
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
--- NOTE | 2022-08-22 07:34 | HP.PT.NRP ---
CARSON MOJICA was seen in my office for initial evaluation on 05/15/22. The following Plan of Care was established for this patient: Initial Frequency: 2x /Week Initial Duration: 4 Weeks Patient/Client Instruction: Educate patient on: Benefits of Fitness Program Therapeutic Exercise to Include: Strength training, Endurance training, Coordination, Body mechanics, Postural training, Flexibilty training, Gait and locomotor training, Neuromotor development, Passive ROM, Active ROM, Dynamic Lumbar Stabilization, Scapular Strength/Stabilization For the Purpose of:: To improve muscle performance and motor function TENS: Yes Cryotherapy (ice pack, ice massage): Yes Thermo therapy (hot pack): Yes Ultrasound (thermal/non thermal): Yes Intermittent cervical traction: Yes This patient was last seen in our office . Pertinent comments regarding their Physical therapy will appear below: Patient has not attended physical therapy in over 30 days- appropriate to be discharged and return to the MD as needed. At this point I will be discontinuing this patient from physical therapy. I would be happy to see this patient again in the future if found appropriate by the physician. Thank you! Ainsley Perez, PETERT Balance/Gait/Functional tests - Balance/Special Test Scores Oswestry Neck Score: 21
== END 2022-07-11 19:00 | disposition home or self-care (01) ==
LOC: PT 16:30
PROVIDERS: PCP Internal Medicine; Referring Provider Internal Medicine; Visit Provider Internal Medicine
DX: M54.2 Cervicalgia (principal); G89.29 Other chronic pain
CPT/HCPCS: 97012; 97110; 97140; 97162; 97164

== ENCOUNTER → 2022-08-23 | Outpatient (CLI) | payer BC, SELFPAY ==
[2022-09-03 16:52] LABS: HPV Reflexed? NOT INDICATED
== END | disposition home or self-care (01) ==
PROVIDERS: PCP Internal Medicine; Referring Provider Obstetrics & Gynecology; Visit Provider Obstetrics & Gynecology
DX: Z12.4 Encounter for screening for malignant neoplasm of cervix (principal)
CPT/HCPCS: 88175; G0145

== ENCOUNTER → 2022-09-02 | Outpatient (CLI) | payer BC, SELFPAY ==
--- NOTE | 2022-09-02 12:07 | EKG12_ITS ---
Test Reason : PRE OP Blood Pressure : / mmHG Vent. Rate : 069 BPM Atrial Rate : 069 BPM P-R Int : 130 ms QRS Dur : 084 ms QT Int : 382 ms P-R-T Axes : 047 054 055 degrees QTc Int : 409 ms Normal sinus rhythm Normal ECG Confirmed by VENKATESH NORTON, SHAILA ([id number]), newspaper editor managing NAKITA BALBUENA ([id number]) on 09/03/2022 11:18:28 AM Referred By: Sidra Dorsey Confirmed By:SHAILA RIDDLE MD
== END | disposition home or self-care (01) ==
LOC: PSN 12:04
PROVIDERS: PCP Internal Medicine; Referring Provider Physician Assistant; Visit Provider Physician Assistant
DX: Z01.818 Encounter for other preprocedural examination (principal)
CPT/HCPCS: 93005

== ENCOUNTER → 2022-09-02 | Outpatient (CLI) | payer BC, SELFPAY ==
[2022-09-02 12:47] LABS: Absolute Lymphocyte Count 2.18 X10^3/uL (0.83-4.51); Basophil# 0.04 X10^3/uL; Basophil% 0.4 % (0-1); Eosinophil# 0.21 X10^3/uL; Eosinophils% 2.3 % (0-5); Hematocrit 41.1 % (37-47); Hemoglobin 13.1 g/dL (12.0-15.0); Lymphocyte # 2.18 X10^3/ul (0.83-4.51); Lymphocyte % 23.9 % (19-41); Mean Corp Hgb Conc 31.9 g/dL (32-36); Mean Corpuscular Volume 87.8 fL (81-99); Mean Platelet Vol. 9.7 fl (6.2-12.0); Monocyte# 0.64 X10^3/uL; NRBC Flagged by Analyzer 0 % (0-5); Neutrophil # 6.02 X10^3/uL (2.7-7.7); Platelet Count 287 K/mm3 (150-450); RBC Distribution Width CV 13.2 % (11.6-14.6); RBC Distribution Width SD 42.1 fl (35.1-43.9); Red Blood Count 4.68 M/mm3 (4.2-5.4); White Blood Count 9.1 K/mm3 (4.4-11.0)
[2022-09-02 13:16] LABS: ALB/GLOB Ratio 0.8 RATIO (0.9-2.4); AST(SGOT) 11 U/L (15-37); Alanine Aminotransfer ALT/SGPT 19 U/L (13-56); Albumin, Serum 3.1 g/dL (3.2-5.0); Alkaline Phosphatase 62 U/L (45-117); Anion Gap 8 (5-15); BUN 11 mg/dL (7-18); BUN/Creat Ratio 15.2 RATIO (10-20); Chloride 107 mmol/L (98-107); Creatinine, Serum 0.72 mg/dL (0.55-1.02); EST Glomerular Filtration Rate 101 mL/min (>60); Est Glom Filt Rate - Afr Amer 122 mL/min (>60); Globulin 4.1 g/dL (2.2-4.2); Glucose 89 mg/dL (74-106); Potassium 3.7 mmol/L (3.5-5.1); Protein, Total 7.2 g/dL (6.4-8.2); Sodium Level 137 mmol/L (136-145)
== END | disposition home or self-care (01) ==
LOC: BIMLAB 10:56
PROVIDERS: PCP Internal Medicine; Referring Provider Physician Assistant; Visit Provider Physician Assistant
DX: Z01.818 Encounter for other preprocedural examination (principal); I10 Essential (primary) hypertension
CPT/HCPCS: 36415; 80053; 85025

== ENCOUNTER 2022-09-10 08:41 | Day surgery (SDC) | payer BC, SELFPAY ==
[2022-09-10 09:22] VITALS: BP 117/73; PULSE 83; RESP 18; TEMP 36.7; O2SAT 98; BMI 30.2
[2022-09-10] MEDS: Lactated Ringers 1,000 ML 15 ML IV (09:26)
[2022-09-10 09:29] LABS: Internal QC Validated? YES +Cl - CLEAR BKGD; Pregnancy, Urine Negative Negative
--- NOTE | 2022-09-10 10:15 | FALS_PTH ---
PATIENT: CARSON MOJICA LOC: [facility] [place] U#:[id number] AGE/SX: 31/F ROOM: RE09/10/[address]: Dr. Deepa Oneill DO : 1990 BED: DIS: 09/10/2022 SPEC #: [id number] RECD: 09/10/22 14:12 STATUS: DAYANARA THORNTONPio #: [id number] CHALO: 09/10/22 10:[address]: Deepa Oneill DEPT: SURGICAL PATHOLOGY RECD BY: Marissa Coley ENTERED: 09/11/22 08:54 SP TYPE: FALL TUBES OTHR DR: Dr. Velia Steel MD Tissues: Fallopian tube Procedures: Surgery Specimen Level II HEADER OPERATION: Laparoscopic salpingectomy PRE-OP DIAGNOSIS: Sterilization TISSUE SUBMITTED: Bilateral fallopian tubes MICROSCOPIC DIAGNOSIS Bilateral fallopian tubes, salpingectomy: Bilateral fallopian tubes, no pathologic diagnosis. SJ:jada 09/12/2022 MICROSCOPIC DESCRIPTION Slides are reviewed. GROSS DESCRIPTION Received in fixative is one container labeled with the patient's name and designated bilateral fallopian tubes. The specimen consists of bilateral fallopian tubes including fimbrial ends each measuring 5 cm in length and 0.6 cm in diameter. The fallopian tubes are not identified as right or left. Sections reveal unremarkable cut surfaces. Forklift Technician sections are submitted in two cassettes with each cassette containing one fallopian tube. / Carlos 09/11/2022 TC:4 CPT: 71490 x2
--- NOTE | 2022-09-10 11:48 | HP.PCM_ITS ---
History and Physical Date of Admission: 09/10/22 Intake Vital Signs ? 02/20/2215:32 07/22/2213:38 08/23/2213:13 08/23/2213:18 Height 5 ft 5 in 5 ft 4 in 5 ft 4 in 5 ft 4 in Weight: ? 175 lb 177 lb 6 oz ? BMI ? 30.0 30.4 ? BP ? 138/84 H 144/91 H ? Blood Pressure Location ? Lt brachial ? ? Position ? Sitting ? ? Respiration ? 14 ? ? Pulse ? 80 ? ? Pulse Source ? Monitor ? ? Temp ? 98.9 F ? ? Pulse Oximetry (%) ? 99 ? ? Oxygen Delivery Method ? room air ? ? 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 Is patient in pain?: No Allergies No Known Allergies Allergy (Verified 08/23/22 13:12) Medications cyanocobalamin (vitamin B-12) 1,000 mcg capsule 1,000 mcg PO DAILY 02/20/22 [History Confirmed 08/23/22] escitalopram oxalate 20 mg tablet 20 mg PO DAILY #90 tabs 02/21/22 [Rx Confirmed 08/23/22] meloxicam 7.5 mg tablet 7.5 mg PO DAILY #30 tabs 06/19/22 [Rx Confirmed 08/23/22] apple cider vinegar 500 mg tablet mg PO 07/22/22 [History Confirmed 08/23/22] ascorbate calcium (vitamin C) 500 mg tablet 1,000 mg PO DAILY 07/22/22 [History Confirmed 08/23/22] buspirone 10 mg tablet 10 mg PO TID anxiety 3 months #270 tabs 07/22/22 [Rx Confirmed 08/23/22] calcium carbonate 333 mg-magnesium oxide 133 mg-zinc gluc 5 mg tablet tab PO 07/22/22 [History Confirmed 08/23/22] cholecalciferol (vitamin D3) 25 mcg (1,000 unit) capsule 25 mcg PO DAILY 07/22/22 [History Confirmed 08/23/22] dicyclomine 20 mg tablet 20 mg PO TID PRN abdominal discomfort 3 months #270 tabs 07/22/22 [Rx Confirmed 08/23/22] inulin 2 gram chewable tablet (Fiber Gummies) g PO 07/22/22 [History Confirmed 08/23/22] lisinopril 40 mg tablet 40 mg PO DAILY #90 tabs 07/22/22 [Rx Confirmed 08/23/22] mqjpkyvj-yalqomc-zktw-iron 18 mg-FA 400 mcg-vit K 25 mcg tablet (One-A-Day Women's Complete) tab PO 07/22/22 [History Confirmed 08/23/22] ondansetron 8 mg disintegrating tablet 8 mg PO PRN 07/22/22 [History Confirmed 08/23/22] desogestrel 0.15 mg-ethinyl estradiol 0.03 mg tablet (Apri) 1 tab PO QDAY #84 tabs 08/06/22 [Rx Confirmed 08/23/22] Is last menstrual period known: Yes Last Menstrual Period: 08/11/22 Post menopausal: No Patient : No : No PFSH Medical History? Back pain Chronic neck pain Difficulty balancing Fatigue Flu vaccine need Migraines Overweight (BMI 25.0-29.9) SOB (shortness of breath) Status post normal childbirth Surgical History? History of tonsillectomy Family History? Other Arthritis Asthma CVA (cerebral vascular accident) Cancer Diabetes High cholesterol Hypertension Multiple myeloma Myocardial infarction Seizures Social History? Smoking Status:? Never smoker alcohol intake:? never substance use type:? does not use caffeine:? Yes what type of physical activity do you participate in:? walking frequency:? 3-4 times per week seatbelt use:? always do you feel safe at home:? Yes additional social history:? Vahe- [place]IL[place] Stay at home mom History ? ? ? 3 ? Elective abortions ? Hx Para ? ? ? 3 ?D Spontaneous abortions ? Hx # Term Pregnancies ? Ectopic pregnancies ? Hx # Pregnancies ? Multiple births ? # of living childrenA ? ? ? 3 Past Pregnancies Del. Date Name GA/Weeks Outcome Route Bth Weight Gen Labor Lgth Anesthesia Del Manuel Provider FOB Unknown 2011 Brigida ? live - full term 7lbs Female ? epidural [place] ? ? Unknown 2017 [place] 39 live - full term 7lbs 12oz Male ? epidural [place] ? ? 02/05/20 Erick 38 live - full term NS VD ? Male ? epidural [facility] ? Delivery Date: 02/05/20? Last Updated by: Monica Brandt ? ? ? no complications HPI Encounter for routine gynecological examination Details: CARSON MOJICA is a 31 year old who presents for a laparoscopic bilateral salpingectomy. She desires permanent sterilization and consent was signed over 30 days ago. Female Reproductive History Last Menstrual Period: 08/11/22 Cycle Length: 21-35 Bleeding Duration: 5 Questions: metorrhagia: No, sexually active: Yes, dyspareunia: No and PCB: No Menopausal Symptoms: No hot flashes, No night sweats, No weight change, No mood changes, No difficulty concentrating, No sleep problems and No change in libido ROS Const Constitutional: Reports as per HPI; Denies fatigue, increased appetite, poor appetite, night sweats, weight gain or weight loss Cardio Card: Denies chest pain Resp Resp: Denies cough or dyspnea GI GI: Reports as per HPI; Denies abdominal pain, bloating, constipation, nausea or vomiting : Reports as per HPI and other; Denies difficulty voiding, dysuria, hematuria, hot flashes, nipple discharge, pelvic pain, prolapse symptoms, urinary frequency, urinary incontinence, urinary urgency, vaginal discharge, vaginal dryness, vaginal odor or vaginal pruritus Skin Skin/Breast: Denies changing lesions, breast mass, breast pain, breast skin changes or nipple discharge Psych Psych: Denies anxiety, change in libido, depression or difficulty concentrating Exam Const General: cooperative, healthy appearing, comfortable, no acute distress, well developed and well groomed [facility] Head: normal to inspection and normocephalic Ears: hearing grossly normal bilaterally and external ears normal Nose: external nose normal Face and sinus: normal facial exam Neck Neck: normal visual inspection, full ROM and no lymphadenopathy Thyroid: thyroid normal Chest Chest palpation & inspection: normal inspection of the chest Breast inspection: normal inspection of the breasts and normal inspection of the axillae Breast palpation: normal palpation of the breasts, normal palpation of the axillae and no axillary lymphadenopathy Resp Effort & Inspection: normal respiratory effort GI Inspection: normal to inspection and non-distended Palpation: soft, no hepatosplenomegaly and no guarding General: bladder normal to palpation External Female Exam: normal external appearance, normal appearance of the urethra and no lesions Urethra: normal appearance of the urethra and normal palpation Speculum Exam - Vagina: normal appearance of the vagina and normal vaginal discharge Speculum Exam - Cervix: normal appearance of the cervix, no cervical discharge, no lesions and nontender Bimanual Exam- Vagina & Uterus: normal bimanual exam, uterine size normal, bladder normal to palpation, No tender, uterine mobility normal, consistency nor mal, non-tender and no cervical motion tenderness Bimanual Exam- Adnexa, other: normal adnexae, no masses and non-tender Skin General: no rashes or lesions noted Neuro General: patient alert, moves all extremities and no focal motor deficits Extrem General: normal to inspection and no pedal edema Psych Appearance: grossly normal Mental Status: mental status grossly normal Affect: normal affect Speech and Movement: speech and movement normal Attitude: cooperative Diagnoses Encounter for routine gynecological examination? Z01.419 Assessment and Plan Assessment and Plan Desires permanent sterilization After discussing the patient's diagnosis and treatment plan options, patient wishes to proceed with surgical management. I have discussed with the patient the risks, benefits, and alternatives of the procedure which include but are not limited to risks of anesthesia, bleeding, infection, possible damage to bowel, bladder, or surrounding vasculature which could lead to additional surgery to evaluate any complications. Patient agrees to procedure and wishes to proceed. ACOG/uptodate references given for additional information regarding procedure. plan for bilateral salpingectomy 09/10/22
--- NOTE | 2022-09-10 11:51 | DCINST_ITS ---
Discharge Instructions Diet Discharge Diet: No restrictions Activity Discharge Activity: Return to Normal Activity, May Not Drive (for two weeks or while taking narcotic pain medications.), May Shower and May Take a Tub Bath (in 7 days) May resume sexual activity in: 1 week Weight Bearing Status: Full weight bearing Dressing / Incision Call your doctor if you observe: Using more than 1 pad per hour, Shortness of breath, Chest pain and Uncontrolled pain Suture Line Care: Avoid Pulling/Pushing and Avoid Pinching/Bending Remove Dressing in: 1 week (if present) Cleanse incision/area with: Soap & Water and Keep Dressing Clean & Dry Follow Up Care Please Follow Up With: Deepa Oneill DO When: Call to make an appointment with your doctor for a follow up incision check in 1-2 weeks. Test Results: Test results from this visit will be discussed in further detail at your follow- up appointment, if applicable. Discharge Plan Admission Primary Reason for Your Visit: laparoscopic bilateral salpingectomy Attending Provider: Deepa Oneill Primary Care Provider: Velia Steel Discharge Orders/Prescriptions Prescriptions: New naproxen 500 mg tablet 500 mg PO BID PRN (Reason: pain) Qty: 30 0RF oxycodone-acetaminophen [Percocet] 5-325 mg tablet 1 tab PO Q4H PRN (Reason: pain) 3 Days Qty: 10 0RF Continued cyanocobalamin (vitamin B-12) 1,000 mcg capsule 1,000 mcg PO DAILY ascorbate calcium (vitamin C) 500 mg tablet 1,000 mg PO DAILY meloxicam 7.5 mg tablet 7.5 mg PO DAILY Qty: 30 1RF cholecalciferol (vitamin D3) 25 mcg (1,000 unit) capsule 25 mcg PO DAILY calcium carb-mag ox-zinc gluc 333-133-5 mg tablet 1 tab PO DAILY One-A-Day Women's Complete 18 mg-400 mcg- 25 mcg tablet 2 tab PO DAILY Fiber Gummies 2 gram tablet,chewable 2 g PO DAILY apple cider vinegar 500 mg tablet 500 mg PO DAILY buspirone 10 mg tablet 10 mg PO TID 90 Days Qty: 270 1RF dicyclomine 20 mg tablet 20 mg PO TID PRN (Reason: abdominal discomfort) 90 Days Qty: 270 1RF lisinopril 40 mg tablet 40 mg PO DAILY Label Comments: TAKE 1 TABLET BY MOUTH ONCE DAILY escitalopram oxalate 20 mg tablet 20 mg PO DAILY Qty: 90 3RF Discontinued desogestrel-ethinyl estradiol [Apri] 0.15-0.03 mg tablet 1 tab PO QDAY Qty: 84 0RF Referrals / Follow Up: Velia Steel MD [Primary Care Provider] - Disposition Disposition (needs filled in before D/C Order can be placed): Home, Self Care
[2022-09-10] MEDS: Bupivacaine 0.25% 30 ML Vial (12:15)
--- NOTE | 2022-09-10 12:23 | OP.PCM_ITS ---
Problems Associated Problem List Diagnoses (1) Contraception management: Operative Report Date of Procedure: 09/10/22 Pre-operative diagnosis: desires permanent sterilization Post-operative diagnsosis: desires permanent sterilization Procedure: laparoscopic bilateral salpingectomy Surgeon: Dr. Deepa Oneill DO Human Resources Advisor: Jw Ni EBL: 10cc urine output: drained to kick bucket Anesthesia: GET Details of the procedure Patient was taken in the operating room and was placed under general anesthesia was prepped and draped in normal sterile fashion in the dorsal lithotomy position. Bladder was drained of clear urine and SCDs were on preoperatively. A single toothed tenaculum was placed on the anterior lip the cervix and a spong stick was inserted in the posterior aspect of the uterus to elevate the uterus. Attention was then paid to the abdominal portion of the procedure and the umbilicus was elevated with towel clamps and injected with Marcaine and after a 5 mm incision was made and a 5 mm laparoscope was inserted into the abdomen under direct visualization. The Abdomen was insufflated with CO2 gas and the patient was placed in trundelenburg position. A left lower quadrant 5 mm port was placed under direct visualization. A suprapubic mini grasper was inserted next. Uterus was well visualized and bilateral fallopian tubes identified and bilateral tubes were elevated and transecting across the mesosalpinx and the attachment to the uterine corpus bilaterally the tubes were removed without complication. Excellent hemostasis was noted. Fallopian tubes were removed through the lower port sites without complication. Liver and upper abdomen were visualized notably within normal limits and no other gross abnormalities were seen in the abdomen. All instruments removed from the abdomen after gas was desufflated. Port sites were closed with 3-0 Monocryl Steri's and op sites were applied. All instruments removed from the vagina and patient was awoken and taken recovery in stable condition. Multi Select Codes Urinary/Genital Urinary/Genital CPT Codes: 91512 Laproscopic BS/O
[2022-09-10 12:42] VITALS: BP 117/73; BP 121/73; PULSE 79; RESP 16; TEMP 36.8; O2SAT 99
[2022-09-10 13:00] VITALS: BP 105/56; BP 117/73; PULSE 80; RESP 16; O2SAT 97
[2022-09-10 13:15] VITALS: BP 105/57; BP 117/73; PULSE 78; RESP 16; O2SAT 97
[2022-09-10 13:31] VITALS: BP 105/55; BP 117/73; PULSE 78; RESP 16; TEMP 36.4; O2SAT 95
[2022-09-10] MEDS: HYDROcodone Bitartrate/Apap 5/325 Tablet PO (13:51)
[2022-09-10 14:00] VITALS: BP 113/59; BP 117/73; PULSE 70; RESP 16; TEMP 36.6; O2SAT 97
== END 2022-09-10 14:26 | disposition home or self-care (01) ==
LOC: SDC 08:41 → AC 08:43
PROVIDERS: PCP Internal Medicine; Referring Provider Obstetrics & Gynecology; Visit Provider Obstetrics & Gynecology
PROC: (CPT 58661; principal; 2022-09-10 10:00)
DX: Z30.2 Encounter for sterilization (principal); I10 Essential (primary) hypertension; F32.A Depression, unspecified; F41.9 Anxiety disorder, unspecified; Z79.899 Other long term (current) drug therapy
CPT/HCPCS: 58661; 00840; 81025; 86850; 86900; 86901; 88302; J7120; J2405

== ENCOUNTER 2022-09-26 07:00 | Day surgery (SDC) | payer BC, SELFPAY ==
[2022-09-26] MEDS: Lactated Ringers 1,000 ML 15 ML IV (07:27)
[2022-09-26 07:31] VITALS: BP 121/74; PULSE 86; RESP 18; TEMP 37.2; O2SAT 98; BMI 30.4
--- NOTE | 2022-09-26 07:52 | HP.PCM_ITS ---
History and Physical Date of Admission: 09/26/22 CARSON MOJICA, is a 31 F who presents to the office today for Initial consult. Carson established with this clinic 06.28.22 presented to outside ED with abdominal pain, tenderness, fullness and tenesmus. Denies diarrhea; but has had intermittent stomach aches and diarrhea with mucous throughout her life, occurred every week to two weeks. BM typically vary between normal and diarrhea. CT abd/pel noted inflammatory changes of the bowel Denies FH IBD. CT abd/pel 06.25.22 noting 1mm hypodensity of right hepatic lobe; small/moderate volume free fluid within pelvis and lower abdomen; suspected wall thickening of small bowel in left mid/uppder abdomen with some edema of bowel mesentery without distention; TI normal caliber; wall thickening of distal ileum cannot be excluded; multilevel Schmorl?s node deformities in thoracolumbar spine. ROS Const Constitutional: No body ache, chills, excessive sweating, fatigue, fever(s), frequent falls, headache(s), snoring, weakness, sleep problems or change in appetite Eyes Eyes: No blurry vision, change in vision, eye pain or Light sensitivity ENT ENT: No abnormal hearing, ear or mastoid pain, tinnitus, nasal congestion, headache(s), neck pain or sore throat Resp Respiratory: No cough, shortness of breath, snoring or wheezing Cardio Cardiology: No chest pain at rest, chest pain with exertion, excessive sweating, shortness of breath, dyspnea on exertion, lightheadedness, orthopnea or palpitations Gastro GI: No abdominal pain, change in bowel habits, constipation, cramping, diarrhea, nausea/dyspepsia or vomiting Genitourinary-Female: No burning urination, painful urination, urinary incontinence or urinary frequency Musc Musculoskeletal: No abnormal gait, joint pain, back pain, limited range of motion, muscle weakness, neck pain or numbness Skin Skin: No dry skin, redness, lesions, itchy eyes, rash or wounds Neuro Neurology: No abnormal gait, abnormal hearing, weakness, frequent falls, headache(s), memory loss or numbness Psych Psychiatric: No anxiety, No change in appetite, No depression, No memory loss and No Thoughts of harming yourself/Others Endo Endocrine: No cold intolerance, excessive sweating, fatigue, flushing, heat intolerance, increased thirst/drinking or increased hunger Aller/Imm Allergy/Immunologic: No itchy eyes, seasonal allergy symptoms, hives or wheezing Onel/Lymp Hematologic/Lymphatic: No easy bleeding, easy bruising or enlarged lymph nodes Exam Const General: cooperative, comfortable and no acute distress Orientation: alert, awake and oriented x3 HENMT Head: normal to inspection, normocephalic and atraumatic Ears: hearing grossly normal bilaterally Neck Neck: normal visual inspection, full ROM and supple Neck mass: No Thyroid: thyroid normal Resp Effort & Inspection: normal respiratory effort and able to speak in complete sentences Auscultation: Bilateral: Clear to Auscultation Cardio Rate: regular rate Rhythm: regular rhythm Heart Sounds: S1 normal and S2 normal Neuro General: patient alert, patient awake, patient oriented x3, moves all extremities and CN's II-XI intact bilaterally Psych Appearance: grossly normal Mental Status: mental status grossly normal Mood: congruent mood Affect: normal affect Quality Reporting Tobacco Screening ([facility]) Smoking Status: Never smoker Assessment and Plan Assessment and Plan (1) Abdominal pain: ?Status:?Acute ?Plan: The differential diagnosis for abdominal pain does include H. pylori associated gastritis, atypical reflux disease, celiac disease, less likely inflammatory bowel disease, chronic idiopathic constipation.? She will undergo biochemical work-up and stool studies.? She may need a upper endoscopy in the future.? I do not think she needs a colonoscopy at this time however pending the work-up it may be necessary.? We will also get stool studies including pancreatic elastase, stool for enteric pathogens, stool for fecal fat and, stool calprotectin. ? ? ? Orders: Orders OVA+PARA w/Giardia EIA [id number] Today R10.9 - Unspecified abdominal pain ? Comprehensive Metabolic Profil Today R10.9 - Unspecified abdominal pain ? CRP Today R10.9 - Unspecified abdominal pain ? LDH Today R10.9 - Unspecified abdominal pain ? CBC W/Diff, Automated Today R10.9 - Unspecified abdominal pain ? Erythrocyte Sed Rate Today R10.9 - Unspecified abdominal pain ? TYLOR Comprehensive Panel Today R10.9 - Unspecified abdominal pain ? Calprotectin, Stool Today R10.9 - Unspecified abdominal pain ? Fecal Fat, Qualitative Today R10.9 - Unspecified abdominal pain ? CDIFF (PCR) Today R10.9 - Unspecified abdominal pain ? ENTERIC PATHOGEN PANEL STOOL Today K58.9 - Irritable bowel syndrome without diarrhea, R10.9 - Unspecified abdominal pain ? Stool Lactoferrin/WBC Today R10.9 - Unspecified abdominal pain ? ANCA Today R10.9 - Unspecified abdominal pain ? Celiac Disease Profile Today R10.9 - Unspecified abdominal pain ? Immunoglobulins G/A/M/E Today R10.9 - Unspecified abdominal pain ? MOJGAN + Protein Elect, Serum Today R10.9 - Unspecified abdominal pain ? Pancreatic Elastase, Fecal Today R10.9 - Unspecified abdominal pain ? Miscellaneous Lab Procedure Today R10.9 - Unspecified abdominal pain ? Catecholamines, Plasma Today R10.9 - Unspecified abdominal pain ? Catecholamines, 24 UR Today R10.9 - Unspecified abdominal pain ? 5-HIAA 24 HR UR Today R10.9 - Unspecifie d abdominal pain ? Gastrin, Serum Today R10.9 - Unspecified abdominal pain ? I have examined the patient and the H&P has been reviewed. There are no clinical changes since date of exam.
--- NOTE | 2022-09-26 08:00 | EGD_PTH ---
PATIENT: CARSON MOJICA LOC: [place] U#:[id number] AGE/SX: 31/F ROOM: RE09/26/[address]: Dr. Dwayne García DO : 1990 BED: DIS: 09/26/2022 SPEC #: [id number] RECD: 09/26/22 10:29 STATUS: DAYANARA REPio #: [id number] CHALO: 09/26/22 08:[address]: Dwayne García DEPT: SURGICAL PATHOLOGY RECD BY: Marissa Coley ENTERED: 09/26/22 12:26 SP TYPE: EGD BIOPSY OT DR: Dr. Velia Steel MD Tissues: A - Duodenum, NOS B - Esophagus, NOS C - Ileum, NOS D - COLON BIOPSY Procedures: Special Stain Group II Surgery Specimen Level IV Alcian Blue/PAS (control) HEADER OPERATION: Colonoscopy, EGD ([facility]), biopsy PRE-OP DIAGNOSIS: Abdominal pain TISSUE SUBMITTED: A ? Duodenum biopsy, B ? Distal esophagus biopsy, C ? Terminal ileum biopsy, D ? Random colonic biopsy MICROSCOPIC DIAGNOSIS A. Duodenum, biopsy: Mild nonspecific chronic inflammation. Focal gastric metaplasia. B. Distal esophagus, biopsy: Fragments of gastric mucosa with chronic inflammation. No evidence of goblet cell metaplasia. See comment. C. Terminal ileum, biopsy: No pathologic change. D. Colon, random biopsy: No pathologic change. AM:jada 09/27/2022 COMMENT B. Alcian blue/PAS stain with matched control supports the above diagnosis. MICROSCOPIC DESCRIPTION Slides are reviewed. GROSS DESCRIPTION A - Received in fixative is one container labeled with the patient's name and designated duodenum biopsy. The specimen consists of multiple irregular fragments of light santana soft tissue that in aggregate measure 1 x 0.5 x 0.1 cm. The specimen is totally submitted in one cassette. B - Received in fixative is one container labeled with the patient's name and designated distal esophagus biopsy. The specimen consists of two irregular fragments of light santana soft tissue that in aggregate measure 0.8 x 0.2 x 0.1 cm. The specimen is totally submitted in one cassette. C - Received in fixative is one container labeled with the patient's name and designated terminal ileum biopsy. The specimen consists of multiple irregular fragments of light santana soft tissue that in aggregate measure 1 x 0.3 x 0.1 cm. The specimen is totally submitted in one cassette. D - Received in fixative is one container labeled with the patient's name and designated random colon biopsy. The specimen consists of multiple irregular fragments of light santana soft tissue that in aggregate measure 1.5 x 1 x 0.1 cm. The specimen is totally submitted in one cassette. / AM:jada 09/26/2022 TC:3 CPT: 95865 x4, 66172
[2022-09-26 08:20] VITALS: BP 117/76; BP 121/74; PULSE 70; RESP 16; TEMP 36.2; O2SAT 100
--- NOTE | 2022-09-26 08:21 | OP.EGD_ITS ---
Patient Name: Jenna Martínez Procedure Date: 09/26/2022 7:46 AM Date of : 1990 Age: 31 Procedure: Upper GI endoscopy Indications: Epigastric abdominal pain, Functional Dyspepsia, Failure to respond to medical treatment Providers: Dwayne García DO Medicines: Monitored Anesthesia Care Patient Profile: This is a 31 year old female. Refer to note in patient chart for documentation of history and physical. Patient has symptoms of chronic abdominal cramping, chronic epigastric abdominal pain and chronic dyspepsia. Complications: No immediate complications. Procedure: Pre-Anesthesia Assessment: - Prior to the procedure, a History and Physical was performed, and patient medications and allergies were reviewed. The risks and benefits of the procedure and the sedation options and risks were discussed with the patient. All questions were answered and informed consent was obtained. Patient identification and proposed procedure were verified by the physician in the pre-procedure area. Mental Status Examination: alert and oriented. Airway Examination: normal oropharyngeal airway and neck mobility. Respiratory Examination: clear to auscultation. CV Examination: normal. Prophylactic Antibiotics: The patient does not require prophylactic antibiotics. Prior Anticoagulants: The patient has taken no previous anticoagulant or antiplatelet agents. ASA Grade Assessment: II - A patient with mild systemic disease. After reviewing the risks and benefits, the patient was deemed in satisfactory condition to undergo the procedure. The anesthesia plan was to use monitored anesthesia care (MAC). Immediately prior to administration of medications, the patient was re-assessed for adequacy to receive sedatives. The heart rate, respiratory rate, oxygen saturations, blood pressure, adequacy of pulmonary ventilation, and response to care were monitored throughout the procedure. The physical status of the patient was re-assessed after the procedure. After obtaining informed consent, the endoscope was passed under direct vision. Throughout the procedure, the patient's blood pressure, pulse, and oxygen saturations were monitored continuously. The pediatric colonoscope was introduced through the mouth, and advanced to the second part of duodenum. The upper GI endoscopy was accomplished without difficulty. The patient tolerated the procedure well. Scope In: 7:56:03 AM Scope Out: 7:59:48 AM Total Procedure Duration Time 0 hours 3 minutes 45 seconds Findings: The Z-line was irregular and was found 37 cm from the incisors. Biopsies were taken with a cold forceps for histology. Biopsies were taken with a cold forceps for histology. Verification of patient identification for the specimen was done. Estimated blood loss was minimal. No gross lesions were noted in the entire examined stomach. No other significant abnormalities were identified in a careful examination of the stomach. Patchy mild mucosal variance characterized by flattening and granularity was found in the duodenal bulb, in the first portion of the duodenum and in the second portion of the duodenum. A benign-appearing, intrinsic moderate stenosis was found at the pylorus. This was traversed. A TTS dilator was passed through the scope. Dilation with a 15 mm pyloric balloon dilator was performed. The dilation site was examined and showed moderate improvement in luminal narrowing. Estimated blood loss was minimal. Impression: - Z-line irregular, 37 cm from the incisors. Biopsied. - No gross lesions in the stomach. - Mucosal variant in the duodenum. Biopsied. Recommendation: - Discharge patient to home. - Resume previous diet. - Continue present medications. - Await pathology results. Procedure Code(s): --- Professional --- 55156, Esophagogastroduodenoscopy, flexible, transoral; with dilation of gastric/duodenal stricture(s) (eg, balloon, bougie) 73132, 59, Esophagogastroduodenoscopy, flexible, transoral; with biopsy, single or multiple CPT copyright 2017 [employer]. All rights reserved. The codes documented in this report are preliminary and upon window assembler review may be revised to meet current compliance requirements. Dwayne García DO 09/26/2022 8:21:09 AM This report has been signed electronically. Number of Addenda: 0 Note Initiated On: 09/26/2022 7:46 AM
--- NOTE | 2022-09-26 08:22 | OP.CCLET_ITS ---
09/26/2022 Velia Steel MD [address] [place] [address] [place] [address] Re : Upper GI endoscopy procedure for Jenna Martínez Dear Dr. Steel This procedure was performed on September. My impressions and recommendations are as follows: Impressions : - Z-line irregular, 37 cm from the incisors. Biopsied. - No gross lesions in the stomach. - Mucosal variant in the duodenum. Biopsied. Recommendations : - Discharge patient to home. - Resume previous diet. - Continue present medications. - Await pathology results. My findings are described in the full procedure note, which is enclosed. If I can be of further assistance, please feel free to contact me at . Sincerely, Dwayne García, 09/26/2022 8:21:09 AM This report has been signed electronically.
[2022-09-26 08:25] VITALS: BP 109/77; BP 121/74; PULSE 65; RESP 16; O2SAT 100
--- NOTE | 2022-09-26 08:26 | OP.CCLET_ITS ---
09/26/2022 Velia Steel MD [address] [place] [address] [place] [address] Re : Colonoscopy procedure for Jenna Martínez Dear Dr. Steel This procedure was performed on September. My impressions and recommendations are as follows: Impressions : - Congested mucosa in the sigmoid colon, in the descending colon, at the splenic flexure and in the ascending colon. Biopsied. - The examined portion of the ileum was normal. Biopsied. Recommendations : - Discharge patient to home. - Resume previous diet. - Continue present medications. - Await pathology results. - Repeat colonoscopy in 10 years for screening purposes. My findings are described in the full procedure note, which is enclosed. If I can be of further assistance, please feel free to contact me at . Sincerely, Dwayne García, 09/26/2022 8:26:32 AM This report has been signed electronically.
--- NOTE | 2022-09-26 08:26 | OP.COLON_ITS ---
Patient Name: Jenna Martínez Procedure Date: 09/26/2022 8:00 AM Date of : 1990 Age: 31 Procedure: Colonoscopy Indications: Clinically significant diarrhea of unexplained origin Providers: Dwayne García DO Medicines: Monitored Anesthesia Care Patient Profile: This is a 31 year old female. Refer to note in patient chart for documentation of history and physical. Patient has symptoms of chronic abdominal cramping, chronic epigastric abdominal pain and chronic dyspepsia. Last Colonoscopy: none. The patient's first colonoscopy is today. Complications: No immediate complications. Procedure: Pre-Anesthesia Assessment: - Prior to the procedure, a History and Physical was performed, and patient medications and allergies were reviewed. The risks and benefits of the procedure and the sedation options and risks were discussed with the patient. All questions were answered and informed consent was obtained. Patient identification and proposed procedure were verified by the physician in the pre-procedure area. Mental Status Examination: alert and oriented. Airway Examination: normal oropharyngeal airway and neck mobility. Respiratory Examination: clear to auscultation. CV Examination: normal. Prophylactic Antibiotics: The patient does not require prophylactic antibiotics. Prior Anticoagulants: The patient has taken no previous anticoagulant or antiplatelet agents. ASA Grade Assessment: II - A patient with mild systemic disease. After reviewing the risks and benefits, the patient was deemed in satisfactory condition to undergo the procedure. The anesthesia plan was to use monitored anesthesia care (MAC). Immediately prior to administration of medications, the patient was re-assessed for adequacy to receive sedatives. The heart rate, respiratory rate, oxygen saturations, blood pressure, adequacy of pulmonary ventilation, and response to care were monitored throughout the procedure. The physical status of the patient was re-assessed after the procedure. After I obtained informed consent, the scope was passed under direct vision. Throughout the procedure, the patient's blood pressure, pulse, and oxygen saturations were monitored continuously. The colonoscope was introduced through the anus and advanced to the terminal ileum. The colonoscopy was performed without difficulty. The patient tolerated the procedure well. The quality of the bowel preparation was good. Scope In: 8:01:47 AM Scope Withdrawal Time 0 hours 9 minutes 51 seconds Scope Out: 8:14:23 AM Total Procedure Duration Time 0 hours 12 minutes 36 seconds Findings: An area of mildly congested mucosa was found in the sigmoid colon, in the descending colon, at the splenic flexure and in the ascending colon. Biopsies were taken with a cold forceps for histology. Verification of patient identification for the specimen was done. Estimated blood loss was minimal. The terminal ileum appeared normal. Biopsies were taken with a cold forceps for histology. Verification of patient identification for the specimen was done. Estimated blood loss was minimal. The perianal and digital rectal examinations were normal. Impression: - Congested mucosa in the sigmoid colon, in the descending colon, at the splenic flexure and in the ascending colon. Biopsied. - The examined portion of the ileum was normal. Biopsied. Recommendation: - Discharge patient to home. - Resume previous diet. - Continue present medications. - Await pathology results. - Repeat colonoscopy in 10 years for screening purposes. Procedure Code(s): --- Professional --- 24986, Colonoscopy, flexible; with biopsy, single or multiple CPT copyright 2017 [employer]. All rights reserved. The codes documented in this report are preliminary and upon termite inspector review may be revised to meet current compliance requirements. Dwayne García DO 09/26/2022 8:26:32 AM This report has been signed electronically. Number of Addenda: 0 Note Initiated On: 09/26/2022 8:00 AM
[2022-09-26 08:30] VITALS: BP 112/78; BP 121/74; PULSE 65; RESP 16; O2SAT 99
[2022-09-26 08:35] VITALS: BP 109/73; BP 121/74; PULSE 66; RESP 16; TEMP 36.1; O2SAT 98
[2022-09-26 08:51] VITALS: BP 121/74
== END 2022-09-26 09:03 | disposition home or self-care (01) ==
LOC: EN 07:01 → AC 07:02
PROVIDERS: PCP Internal Medicine; Referring Provider Internal Medicine; Visit Provider Internal Medicine Gastroenterology
PROC: 0DJD8ZZ Inspection of Lower Intestinal Tract, Via Natural or Artificial Opening Endoscopic (ICD-10-PCS; CPT 45378; principal; 2022-09-26 07:55)
DX: K31.1 Adult hypertrophic pyloric stenosis (principal); Z79.4 Long term (current) use of insulin; K21.00 Gastro-esophageal reflux disease with esophagitis, without bleeding; K31.89 Other diseases of stomach and duodenum; K63.89 Other specified diseases of intestine; F41.9 Anxiety disorder, unspecified; F32.A Depression, unspecified; I10 Essential (primary) hypertension; G89.29 Other chronic pain; Z79.899 Other long term (current) drug therapy
CPT/HCPCS: 45380; 43239; 43245; 88305; 88313; J7120; J2405

== ENCOUNTER → 2022-10-23 | Outpatient (CLI) | payer BC, SELFPAY ==
[2022-10-23 16:17] LABS: Anion Gap 8 (5-15); BUN 11 mg/dL (7-18); BUN/Creat Ratio 15.3 RATIO (10-20); Calcium,Total 9.3 mg/dL (8.5-10.1); Chloride 101 mmol/L (98-107); Creatinine, Serum 0.72 mg/dL (0.55-1.02); EST Glomerular Filtration Rate 102 mL/min (>60); Est Glom Filt Rate - Afr Amer 123 mL/min (>60); Glucose 91 mg/dL (74-106); Potassium 4.5 mmol/L (3.5-5.1); Sodium Level 136 mmol/L (136-145)
== END | disposition home or self-care (01) ==
PROVIDERS: PCP Internal Medicine; Referring Provider Internal Medicine; Visit Provider Internal Medicine
DX: I10 Essential (primary) hypertension (principal)
CPT/HCPCS: 36415; 80048

== ENCOUNTER → 2023-03-31 | Outpatient (CLI) | payer BC, SELFPAY ==
[2023-03-31 15:36] LABS: Absolute Lymphocyte Count 2.43 X10^3/uL (0.83-4.51); Absolute Neutrophil Count 5.2 X10^3/uL (2.0-7.7); Basophil# 0.03 X10^3/uL; Basophil% 0.4 % (0-1); Eosinophil# 0.06 X10^3/uL; Eosinophils% 0.7 % (0-5); Hematocrit 43.7 % (37-47); Hemoglobin 14.1 g/dL (12.0-15.0); Lymphocyte # 2.43 X10^3/ul (0.83-4.51); Lymphocyte % 29.5 % (19-41); Mean Corp Hgb Conc 32.3 g/dL (32-36); Mean Corpuscular Hgb 27.5 pg (27.0-32.0); Mean Corpuscular Volume 85.2 fL (81-99); Mean Platelet Vol. 9.9 fl (6.2-12.0); Monocyte# 0.47 X10^3/uL; Monocyte% 5.7 % (0-10); NRBC Flagged by Analyzer 0 % (0-5); Neutrophil # 5.22 X10^3/uL (2.7-7.7); Neutrophil % 63.5 % (47-70); Platelet Count 273 K/mm3 (150-450); RBC Distribution Width CV 12.5 % (11.6-14.6); RBC Distribution Width SD 38.6 fl (35.1-43.9); Red Blood Count 5.13 M/mm3 (4.2-5.4); White Blood Count 8.2 K/mm3 (4.4-11.0)
[2023-03-31 16:15] LABS: ALB/GLOB Ratio 0.9 RATIO (0.9-2.4); AST(SGOT) 20 U/L (15-37); Alanine Aminotransfer ALT/SGPT 25 U/L (13-56); Albumin, Serum 3.9 g/dL (3.2-5.0); Alkaline Phosphatase 98 U/L (45-117); Anion Gap 4 (5-15); BUN 10 mg/dL (7-18); Calcium,Total 9.3 mg/dL (8.5-10.1); Chloride 108 mmol/L (98-107); Cholesterol 212 mg/dL (200); EST Glomerular Filtration Rate 69 mL/min (>60); Est Glom Filt Rate - Afr Amer 84 mL/min (>60); Globulin 4.3 g/dL (2.2-4.2); Glucose 94 mg/dL (74-106); High Density Lipoprotein 57 mg/dL; Potassium 3.9 mmol/L (3.5-5.1); Protein, Total 8.2 g/dL (6.4-8.2); Sodium Level 136 mmol/L (136-145); Triglycerides 145 mg/dL; Very Low Density Lipoprotein 29 mg/dL (5-40)
== END | disposition home or self-care (01) ==
LOC: BIMLAB 13:40
PROVIDERS: PCP Internal Medicine; Referring Provider Internal Medicine; Visit Provider Internal Medicine
DX: I10 Essential (primary) hypertension (principal)
CPT/HCPCS: 36415; 80053; 80061; 85025

== ENCOUNTER → 2023-09-05 | Outpatient (CLI) | payer BC, SELFPAY ==
[2023-09-05 15:33] LABS: Anion Gap 6 (5-15); BUN 14 mg/dL (7-18); BUN/Creat Ratio 17.5 RATIO (10-20); Calcium,Total 8.4 mg/dL (8.5-10.1); Chloride 109 mmol/L (98-107); EST Glomerular Filtration Rate 89 mL/min (>60); Est Glom Filt Rate - Afr Amer 108 mL/min (>60); Glucose 95 mg/dL (74-106); Potassium 3.9 mmol/L (3.5-5.1); Sodium Level 141 mmol/L (136-145); T4 Free Direct 0.92 ng/dL (0.76-1.46); Thyroid Stim Hormone (TSH) 0.97 uIU/mL (0.358-3.74)
== END | disposition home or self-care (01) ==
LOC: BIMLAB 14:09
PROVIDERS: PCP Internal Medicine; Referring Provider Internal Medicine; Visit Provider Internal Medicine
DX: N92.6 Irregular menstruation, unspecified (principal); I10 Essential (primary) hypertension
CPT/HCPCS: 36415; 80048; 84439; 84443

== ENCOUNTER → 2023-10-13 | Outpatient (CLI) | payer BC, SELFPAY ==
--- NOTE | 2023-10-13 13:58 | US_ITS ---
INDICATION: abnormal uterine bleeding EXAMINATION: Ultrasound US Pelvis Non OB Complete With Transvaginal Imaging TECHNIQUE: Transabdominal and transvaginal pelvic ultrasound was performed. Grayscale, spectral waveform, and color flow Doppler evaluation of the adnexa. COMPARISON: No relevant prior comparison study available FINDINGS: UTERUS: The uterus measures 5.0 x 8.6 x 4.3 cm. There is no uterine mass. The myometrium is heterogenous and slightly bulky. The endometrial stripe measures 4.5 mm in AP diameter which is within normal limits. RIGHT OVARY: 2.4 x 2.1 x 2.5 cm. Non-enlarged, normal echogenicity. There is normal arterial inflow and venous outflow present in the right ovary. LEFT OVARY: 2.2 x 1.4 x 2.2 cm. Non-enlarged, normal echogenicity. There is normal arterial inflow and venous outflow present in the left ovary. FREE FLUID: None. US/Pelvic w/ Transvaginal IMPRESSION: Heterogenous and bulky myometrium may be secondary to adenomyosis. Electronically Signed: Shelby Cabrales MD at 8:35 EST ,
--- OUTSIDE RECORDS SUMMARY | 2023-10-13 14:28 | XMS RPT_ITS | CCD ---
Author Name Unknown Address [address] [place] [address] [address] [place] [address] Organization [facility] Care Team Providers Care Flue Gas Analyst Name Role Phone DO Jenaro Lockhart Attending Unavailab le Pending, Provider Primary Care Unavailable Problems Problem Classification Problem Date Documented Da te Episodic/Chronic Abdominal pain (2 sources) Upper abdominal pain, unspecified; Translations: [Upper abdominal pain, unspecified] Onset: 06-25-2022 Episodic Anxiety disorders (1 source) Anxiety disorder, unspecified; Translations: [Anxiety disorder, unspecified] Onset: 06-25-2022 Chronic Essential hypertension (1 source) Essential (primary) hypertension; Translations: [Essential (primary) hypertension] Onset: 06-25-2022 Chronic Mood disorders (1 source) Mood disorders; Translations: [Depression, unspecified] Onset: 06-25-2022 Nausea and vomiting (2 sources) Nausea with vomiting, unspecified; Translations: [Nausea with vomiting, unspecified] Onset: 06-25-2022 Episodic Other aftercare (1 source) Other detention (current) drug therapy; Translations: [Other detention (current) drug therapy] Onset: 06-25-2022 Episodic Other nutritional; endocrine; and metabolic disorders (2 sources) Anorexia; Translations: [Anorexia] Onset: 06-25-2022 Episodic Results Test Name Value Interpretation Reference Range Facil ity Encounters Encounter Date Encounter Type Care Provider Facility Start: 06-25-2022 End: 06-25-2022 Emergency department patient visit DO Jenaro Lockhart Facility:[id number] Start: 09-04-2018 Patient encounter procedure Facility:[id number] Start: 02-20-2018 Patient encounter procedure Facility:[id number] Payers Date Payer Category Payer Unknown [id number] [id number]. [id number] 1990 Unknown [id number] [id number]. [id number] 1990 Unknown [id number] [id number] Unknown [id number] Unknown [id number] Summary Purpose Family History No Family History Records FoundNo Family History Records FoundNo Family History Records FoundNo Family History Records FoundNo Family History Records FoundNo Family History Records FoundNo Family History Records Found Advance Directives No Advanced Directives Records FoundNo Advanced Directives Records FoundNo Advanced Directives Records FoundNo Advanced Directives Records FoundNo Advanced Directives Records FoundNo Advanced Directives Records FoundNo Advanced Directives Records Found Additional Source Comments INFORMATION SOURCE (unrecogn ized section and content) DATE CREATED AUTHOR AUTHOR'S ORGANIZ ATION 09/07/2018 [facility] DATE CREATED AUTHOR AUTHOR'S ORGANIZ ATION 09/12/2018 [facility] DATE CREATED AUTHOR AUTHOR'S ORGANIZ ATION [facility] DATE CREATED AUTHOR AUTHOR'S ORGANIZ ATION 03/22/2019 [facility] DATE CREATED AUTHOR AUTHOR'S ORGANIZ ATION 08/04/2019 [facility] DATE CREATED AUTHOR AUTHOR'S ORGANIZ ATION 07/01/2022 [facility] FOR RECORDS PERTAINING TO PATIENTS WHO ARE OR HAVE BEEN ENROLLED IN A CHEMICAL DEPENDENCY/SUBSTANCEABUSE PROGRAM, SOME INFORMATION MAY BE OMITTED. This clinical summary was aggregated from multiple sources. Caution should be exercised in using it in the provision of clinical care. This summary normalizes information from multiple sources, and as a consequence, information in this document may materially change the coding, format and clinical context of patient data. In addition, data may be omitted in some cases. CLINICAL DECISIONS SHOULD BE BASED ON THE PRIMARY CLINICAL RECORDS. [facility] [employer] provides no warranty or guarantee of the accuracy or completeness of information in this document.
== END | disposition home or self-care (01) ==
LOC: US 13:58
PROVIDERS: PCP Internal Medicine; Referring Provider Obstetrics & Gynecology; Visit Provider Obstetrics & Gynecology
DX: N92.6 Irregular menstruation, unspecified (principal)
CPT/HCPCS: 76830; 76856

== ENCOUNTER → 2023-11-05 | Outpatient (CLI) | payer BC, SELFPAY ==
--- NOTE | 2023-11-05 02:10 | EMB_PTH ---
PATHOLOGY RESULTS PATIENT: CARSON MOJICA LOC: [facility] U#:[id number] AGE/SX: 32/F ROOM: RE11/05/[address]: Dr. Deepa Oneill DO : 1990 BED: DIS: 11/05/2023 SPEC #: [id number] RECD: 11/05/23 15:48 STATUS: DAYANARA CARLOS #: [id number] CHALO: 11/05/23 02:[address]: Deepa Oneill DEPT: SURGICAL PATHOLOGY RECD BY: Marissa Coley ENTERED: 11/06/23 08:23 SP TYPE: ENDOM BX/C DELIOHR DR: Dr. Velia Steel MD Tissues: Endometrium, NOS Procedures: Surgery Specimen Level IV HEADER OPERATION: Endometrial biopsy PRE-OP DIAGNOSIS: Abnormal uterine bleeding TISSUE SUBMITTED: Endometrial lining MICROSCOPIC DIAGNOSIS Endometrial biopsy: Consistent with exogenous hormone effects. SJ:jada 11/10/2023 MICROSCOPIC DESCRIPTION Slides are reviewed. GROSS DESCRIPTION Received is one container labeled with the patient's name and not further designated. The specimen consists of multiple irregular fragments of pink soft tissue that in aggregate measure 1.5 x 1 x 0.1 cm. The specimen is totally submitted in one cassette. MALLORY/janel 11/06/23 TC:5 CPT: 82297
--- OUTSIDE RECORDS SUMMARY | 2023-11-05 19:18 | XMS RPT_ITS | CCD ---
Author Name Unknown Address [address] [place] [address] [address] [place] [address] Organization [facility] Care Team Providers Care Guidance Counselor Name Role Phone DO Jenaro Lockhart Attending [...] 06-25-2022 Episodic Other aftercare (1 source) Other salvage determiner (current) drug therapy; Translations: [Other skilled nursing (current) drug therapy] Onset: 06-25-2022 Episodic Other [...] Facility:[id number] Payers Date Payer Category Payer Unknown [id number] 2.16. [id number] 1990 Unknown [id number] [id number]. [id number] 1990 Unknown [id number] Unknown [id number] Unknown [id number] Summary Purpose Family History No Family History [...] DATE CREATED AUTHOR AUTHOR'S ORGANIZ ATION 09/07/2018 [facility] DATE CREATED AUTHOR AUTHOR'S ORGANIZ ATION 09/12/2018 [facility] DATE CREATED AUTHOR AUTHOR'S ORGANIZ ATION 03/20/2019 [facility] DATE CREATED AUTHOR AUTHOR'S ORGANIZ ATION 03/22/2019 [facility] DATE CREATED AUTHOR AUTHOR'S ORGANIZ ATION 08/04/2019 [facility] DATE CREATED AUTHOR AUTHOR'S ORGANIZ ATION 07/01/2022 [facility] FOR RECORDS PERTAINING TO PATIENTS WHO ARE [...] BE BASED ON THE PRIMARY CLINICAL RECORDS. [facility] [employer] provides no warranty or guarantee of the accuracy or completeness of information in this document.
== END | disposition home or self-care (01) ==
LOC: LABSPEC 16:17
PROVIDERS: PCP Internal Medicine; Referring Provider Obstetrics & Gynecology; Visit Provider Obstetrics & Gynecology
DX: N93.9 Abnormal uterine and vaginal bleeding, unspecified (principal)
CPT/HCPCS: 88305

== ENCOUNTER 2023-12-02 05:29 | Day surgery (SDC) | payer BC, SELFPAY ==
[2023-11-25 16:50] LABS: Hemoglobin 13.6 g/dL (12.0-15.0); Mean Corp Hgb Conc 33.2 g/dL (32-36); Mean Corpuscular Hgb 27.6 pg (27.0-32.0); Mean Corpuscular Volume 83.2 fL (81-99); Mean Platelet Vol. 9.2 fl (6.2-12.0); Platelet Count 274 K/mm3 (150-450); RBC Distribution Width CV 12.5 % (11.6-14.6); RBC Distribution Width SD 37.6 fl (35.1-43.9); Red Blood Count 4.93 M/mm3 (4.2-5.4); White Blood Count 9.5 K/mm3 (4.4-11.0)
[2023-11-25 17:28] LABS: Magnesium 2.2 mg/dL (1.6-2.6)
[2023-12-02] VITALS (11 sets, daily range): BP systolic 98–126; BP diastolic 56–80; PULSE 82–107; RESP 16–18; TEMP 36.9–37.6; O2SAT 94–100; BMI 31.7
--- OUTSIDE RECORDS SUMMARY | 2023-12-02 05:30 | XMS RPT_ITS | CCD ---
Author Name Unknown Address [address] [place] [address] [address] [place] [address] Organization [facility] Care Team Providers Care Solar Water Heater Installer Name Role Phone DO Jenaro Lockhart Attending [...] 06-25-2022 Episodic Other aftercare (1 source) Other chcf (current) drug therapy; Translations: [Other terminal worker (current) drug therapy] Onset: 06-25-2022 Episodic Other [...] Facility:[id number] Payers Date Payer Category Payer Unknown [id number] [id number]. [id number] 1990 Unknown [id number] [id number]. [id number] 1990 Unknown [id number] Unknown [id number] Unknown [id number] Summary Purpose Family History No Family History [...] DATE CREATED AUTHOR AUTHOR'S ORGANIZ ATION 09/07/2018 [facility] DATE CREATED AUTHOR AUTHOR'S ORGANIZ ATION 09/12/2018 [facility] DATE CREATED AUTHOR AUTHOR'S ORGANIZ ATION 03/20/2019 [facility] DATE CREATED AUTHOR AUTHOR'S ORGANIZ ATION 03/22/2019 [facility] DATE CREATED AUTHOR AUTHOR'S ORGANIZ ATION 08/04/2019 [facility] DATE CREATED AUTHOR AUTHOR'S ORGANIZ ATION 07/01/2022 [facility] FOR RECORDS PERTAINING TO PATIENTS WHO ARE [...] BE BASED ON THE PRIMARY CLINICAL RECORDS. [facility] [employer] provides no warranty or guarantee of the accuracy or completeness of information in this document.
[2023-12-02 06:21] LABS: Bedside Glucose 93 mg/dL (74-106)
[2023-12-02] MEDS: Lactated Ringers 1,000 ML 40 ML IV (06:26)
[2023-12-02] MEDS: Phenazopyridine 95 MG Tablet 190 MG PO (06:27)
[2023-12-02] MEDS: Enoxaparin 40 MG/0.4 ML Syringe SC (06:28)
[2023-12-02] MEDS: Acetaminophen 500 MG Tablet 1000 MG PO (06:28)
[2023-12-02] MEDS: Celecoxib 200 MG Capsule 400 MG PO (06:28)
[2023-12-02] MEDS: Gabapentin 600 MG Tablet PO (06:28)
[2023-12-02] MEDS: Magnesium 1 GM over 15 mins IV (06:29)
[2023-12-02] MEDS: dexAMETHasone 4 MG/ML Vial 8 MG IV (06:29)
[2023-12-02] MEDS: Scopolamine 1mg/72hr Patch 1 PATCH TD (06:35)
[2023-12-02 07:09] LABS: Internal QC Validated? YES +Cl - CLEAR BKGD; Pregnancy, Urine Negative Negative
--- NOTE | 2023-12-02 07:19 | PCM.HP.BLA ---
History and Physical Date of Admission: 12/02/23 Intake Vital Signs 11/05/2412:49 11/24/2414:40 11/24/2414:42 Height 5 ft 4 in 5 ft 4 in 5 ft 4 in Weight: 189 lb 2 oz BMI 32.4 BP 116/72 Intake Visit Reasons: TRH BS cystoscopy Line Mover Required: No Is patient in pain?: No Allergies No Known Allergies Allergy (Verified 11/25/23 15:40) Medications cyanocobalamin (vitamin B-12) 1,000 mcg capsule 1,000 mcg PO DAILY 02/20/22 [History Confirmed 11/25/23] ascorbate calcium (vitamin C) 500 mg tablet 1,000 mg PO DAILY 07/22/22 [History Confirmed 11/25/23] calcium carbonate 333 mg-magnesium oxide 133 mg-zinc gluc 5 mg tablet 1 tab PO DAILY 07/22/22 [History Confirmed 11/25/23] cholecalciferol (vitamin D3) 25 mcg (1,000 unit) capsule 25 mcg PO DAILY 07/22/22 [History Confirmed 11/25/23] dicyclomine 20 mg tablet 20 mg PO TID PRN abdominal discomfort 3 months #270 tabs 07/22/22 [Rx Confirmed 11/25/23] ztoczjmo-mjembzm-qrsa-iron 18 mg-FA 400 mcg-vit K 25 mcg tablet (One-A-Day Women's Complete(with vit K)) 2 tab PO DAILY 07/22/22 [History Confirmed 11/25/23] sumatriptan succinate 50 mg tablet See Rx Instructions .Route .COMPLEX #12 tabs 03/07/23 [Rx Confirmed 11/25/23] pantoprazole 40 mg tablet,delayed release 40 mg PO DAILY #30 tabs 06/05/23 [Rx Confirmed 11/25/23] escitalopram oxalate 20 mg tablet 20 mg PO DAILY #90 tabs 06/12/23 [Rx Confirmed 11/25/23] lisinopril 20 mg tablet See Rx Instructions .Route .COMPLEX #90 tabs 07/22/23 [Rx Confirmed 11/25/23] buspirone 15 mg tablet 15 mg PO TID anxiety 3 months #270 tabs 09/05/23 [Rx Confirmed 11/25/23] njrdep-aujahvnc-jqcvixh 24,000-76,000-120,000 unit capsule,delayed rel (Creon) 1 cap PO TID #90 caps 09/08/23 [Rx Confirmed 11/25/23] baclofen 10 mg tablet See Rx Instructions .Route .COMPLEX #30 tabs 09/24/23 [Rx Confirmed 11/25/23] etonogestrel 0.12 mg-ethinyl estradiol 0.015 mg/24 hr vaginal ring (NuvaRing) 1 vag ring vaginal Q4W #3 ea 10/06/23 [Rx Confirmed 11/25/23] topiramate 25 mg tablet See Rx Instructions .Route .COMPLEX #180 tabs 11/18/23 [Rx Confirmed 11/25/23] Post menopausal: No Patient : No : No PFSH Medical History Anxiety Chronic migraine Chronic neck pain Contraception management Depression Episodic lightheadedness Fatigue Flu vaccine need Gastric reflux Hx of vaginal delivery Hypertension Injury of head and neck Menstrual abnormality Migraines Muscle spasm of shoulder region Non-smoker Obesity (BMI 30-39.9) Overweight (BMI 25.0-29.9) Sinusitis Sprain and strain of temporomandibular joint Wears contact lenses Wears glasses Surgical History History of tonsillectomy Hx of bilateral salpingectomy Hx of colonoscopy Status post laparoscopy Family History Other Arthritis Asthma CVA (cerebral vascular accident) Cancer Diabetes High cholesterol Hypertension Multiple myeloma Myocardial infarction Seizures Social History Smoking Status: Never smoker alcohol intake: never substance use type: does not use caffeine: Yes what type of physical activity do you participate in: walking frequency: 3-4 times per week seatbelt use: always do you feel safe at home: Yes 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 She has been having menses that lasts 2 weeks (starts as spotting, heavy for 2 days, slow for a few days then heavy again) had tubal not on ocps. this changed since stopped taking ocps. but was spotting intermenstrually with loestrin as well. EMB showed benign endometrial tissue with exogenous hormone effect. ultrasound showed the following: FINDINGS: UTERUS: The uterus measures 5.0 x 8.6 x 4.3 cm. There is no uterine mass. The myometrium is heterogenous and slightly bulky. The endometrial stripe measures 4.5 mm in AP diameter which is within normal limits. RIGHT OVARY: 2.4 x 2.1 x 2.5 cm. Non-enlarged, normal echogenicity. There is normal arterial inflow and venous outflow present in the right ovary. LEFT OVARY: 2.2 x 1.4 x 2.2 cm. Non-enlarged, normal echogenicity. There is normal arterial inflow and venous outflow present in the left ovary. FREE FLUID: None. US/Pelvic w/ Transvaginal IMPRESSION: Heterogenous and bulky myometrium may be secondary to adenomyosis. unfortunately, last night she step on a muddy screw in a board that went through her shoe. it left a red dot and there is some streaking adjacent to the area. Her last TDAP was 11/12/2019. History 3 Elective abortions Hx Para 3 Spontaneous abortions Hx # Term Pregnancies Ectopic pregnancies Hx # Pregnancies Multiple births # of living children 3 Past Pregnancies Del. Date Name GA/Weeks Outcome Route Bth Weight Infant Gen Labor Lgth Anesthesia Del Locatn Provider FOB Unknown 2011 [place] live - full term 7lbs Female epidural [place] Unknown 2017 [place] 39 live - full term 7lbs 12oz Male epidural [place] 02/05/20 [place] 38 live - full term Male epidural [facility] Delivery Date: 02/05/20 Last Updated by: Monica Brandt no complications ROS Const ROS Unobtainable: All systems reviewed & are unremarkable except as noted in H Resp Resp: Reports system reviewed and no additional complaints, except as documented; Denies cough GI GI: Reports as per HPI Psych Psych: Reports system reviewed and no additional complaints, except as documented Exam Const General: cooperative, healthy appearing, comfortable and no acute distress Resp Effort & Inspection: normal respiratory effort Skin General: no rashes or lesions noted Psych Appearance: grossly normal Speech and Movement: speech and movement normal Coding Level of Care Code Off vis,est,level 4 Diagnoses Menstrual abnormality N92.6 Obesity (BMI 30-39.9) E66.9 Adenomyosis N80.03 Assessment and Plan Assessment and Plan (1) Menstrual abnormality: Status: Acute (2) Obesity (BMI 30-39.9): Status: Acute (3) Adenomyosis: Status: Acute Plan After discussing the patient's diagnosis and treatment plan options, patient wishes to proceed with surgical management. I have discussed with the patient the risks, benefits, and alternatives of the procedure which include but are not limited to risks of anesthesia, bleeding, infection, possible damage to bowel, bladder, or surrounding vasculature which could lead to additional surgery to evaluate any complications. Patient agrees to procedure and wishes to proceed. ACOG/uptodate references given for additional information regarding procedure. plan for total robotic hysterectomy and cystoscopy treating dirty puncture wound with cipro. pt is up to date with tdap.
--- NOTE | 2023-12-02 07:30 | HYST_PTH ---
PATHOLOGY RESULTS PATIENT: CARSON MOJICA LOC: [facility] [place] U#:[id number] AGE/SX: 33/F ROOM: RE12/02/[address]: Dr. Deepa Oneill DO : 1990 BED: DIS: 12/02/2023 SPEC #: [id number] RECD: 12/02/23 11:06 STATUS: DAYANARA CARLOS #: [id number] CHALO: 12/02/23 07:[address]: Deepa Oneill DEPT: SURGICAL PATHOLOGY RECD BY: Nirali Roberson ENTERED: 12/02/23 11:06 SP TYPE: HYSTERECT OTHR DR: Dr. Velia Steel MD Tissues: Uterus, NOS Procedures: Surgery Specimen Level V HEADER OPERATION: ERAS, Laparoscopic Robotic Hysterectomy, Cystoscopy PRE-OP DIAGNOSIS: Menstrual abnormality TISSUE SUBMITTED: Uterus and Cervix MICROSCOPIC DIAGNOSIS Uterus and cervix, hysterectomy: Cervix - mild chronic inflammation. Endometrium - weakly proliferative endometrium. Myometrium - no pathologic diagnosis. MALLORY:jada 12/03/2023 MICROSCOPIC DESCRIPTION Slides are reviewed. GROSS DESCRIPTION Received in fixative is one container labeled with the patient's name and designated uterus and cervix. The specimen consists of a hysterectomy specimen consisting of uterus with cervix weighing 78 gm and measuring 9.0 x 5.0 x 4.0 cm. The serosal surface is santana, glistening. The ectocervical mucosa is unremarkable. The external os is oval in contour and covered with bloody, mucoid fluid. The endocervical canal measures 2.7 cm in length and the endocervical mucosa is santana, glistening and unremarkable. The triangular endometrial cavity measures 4.5 cm in length and 2.5 cm in width. The endometrium is santana, glistening without any mass lesion and measures <0.1 cm in thickness. Sections of the uterine wall do not reveal any mass lesion and it measures 1.7 cm in thickness. Operations [employer] sections are submitted in six cassettes as follows: 1 - anterior cervix, 2 - posterior cervix, 3 & 4 - anterior uterine wall, 5 & 6 - posterior uterine wall. / Carlos 12/02/2023 TC:3 CPT: 93997
[2023-12-02] MEDS: Cefazolin 2 GM in 0.9% Normal Saline (100mL Bag) 100 ML IV (07:33)
--- NOTE | 2023-12-02 07:43 | DCINST_ITS ---
Discharge Instructions Diet Discharge Diet: No restrictions Activity May resume sexual activity in: 6 weeks Weight Bearing Status: Full weight bearing Dressing / Incision Call your doctor if your incision/area has: Continuous Slow Oozing, Sudden Increased Bleeding, Increased Pain/ Swelling, Increased Redness and Foul Smelling Discharge Call your doctor if you observe: Fever of 101 or Higher, Using more than 1 pad per hour, Shortness of breath, Chest pain and Uncontrolled pain Suture Line Care: Avoid Pulling/Pushing and Avoid Pinching/Bending Remove Dressing in: 1 week (if present) Cleanse incision/area with: Soap & Water and Keep Dressing Clean & Dry Follow Up Care Please Follow Up With: Deepa Oneill DO When: Call to make an appointment with your doctor for a postop visit in 2 and 6 weeks Test Results: Test results from this visit will be discussed in further detail at your follow- up appointment, if applicable. Discharge Plan Admission Primary Reason for Your Visit: hysterectomy Attending Provider: Deepa Oneill Primary Care Provider: Velia Steel Instructions Patient Instructions: Recovering from Hysterectomy Discharge Orders/Prescriptions Prescriptions: New ciprofloxacin HCl [Cipro] 500 mg tablet 500 mg PO BID Qty: 14 0RF docusate sodium [Colace] 100 mg capsule 100 mg PO DAILY Qty: 30 0RF ibuprofen 800 mg tablet 800 mg PO Q8H Qty: 30 0RF oxycodone-acetaminophen [Percocet] 5-325 mg tablet 1 tab PO Q4H PRN (Reason: pain) 7 Days Qty: 20 0RF Rx Instructions: 1-2 tabs q 4 hrs as needed for pain Continued cyanocobalamin (vitamin B-12) 1,000 mcg capsule 1,000 mcg PO DAILY ascorbate calcium (vitamin C) 500 mg tablet 1,000 mg PO DAILY cholecalciferol (vitamin D3) 25 mcg (1,000 unit) capsule 25 mcg PO DAILY calcium carb-mag ox-zinc gluc 333-133-5 mg tablet 1 tab PO DAILY One-A-Day Women's Complete(vK) 18 mg-400 mcg- 25 mcg tablet 2 tab PO DAILY dicyclomine 20 mg tablet 20 mg PO TID PRN (Reason: abdominal discomfort) 90 Days Qty: 270 1RF pantoprazole 40 mg tablet,delayed release (DR/EC) 40 mg PO DAILY Qty: 30 5RF buspirone 15 mg tablet 15 mg PO TID 90 Days Qty: 270 1RF sumatriptan succinate 50 mg tablet See Rx Instructions .ROUTE .COMPLEX Qty: 12 3RF Dose Instruction: TAKE 1 TABLET BY MOUTH AT ONSET OF HEADACHE-MAY REPEAT IN 2 HRS IF NEEDED-MAX 4 PER 24 HRS Rx Instructions: TAKE 1 TABLET BY MOUTH AT ONSET OF HEADACHE-MAY REPEAT IN 2 HRS IF NEEDED-MAX 4 PER 24 HRS escitalopram oxalate 20 mg tablet 20 mg PO DAILY Qty: 90 1RF lisinopril 20 mg tablet See Rx Instructions .ROUTE .COMPLEX Qty: 90 1RF Dose Instruction: TAKE 1 TABLET BY MOUTH EVERY DAY Rx Instructions: TAKE 1 TABLET BY MOUTH EVERY DAY Creon 24,000-76,000 -120,000 unit capsule,delayed release(DR/EC) 1 cap PO TID Qty: 90 3RF Rx Instructions: administer with meals and/or snacks baclofen 10 mg tablet See Rx Instructions .ROUTE .COMPLEX Qty: 30 2RF Dose Instruction: TAKE 1 TABLET BY MOUTH TWICE A DAY NEEDED FOR MUSCLE SPASM Rx Instructions: TAKE 1 TABLET BY MOUTH TWICE A DAY NEEDED FOR MUSCLE SPASM topiramate 25 mg tablet See Rx Instructions .ROUTE .COMPLEX Qty: 180 0RF Dose Instruction: TAKE 1 TABLET BY MOUTH TWICE A DAY Rx Instructions: TAKE 1 TABLET BY MOUTH TWICE A DAY Discontinued etonogestrel-ethinyl estradiol [NuvaRing] 0.12-0.015 mg/24 hr ring 1 vag ring vaginal Q4W Qty: 3 4RF Patient Comments: removed 11/25/23 Rx Instructions: leave in place for 4 weeks and replace (use continuously) Referrals / Follow Up: Velia Steel MD [Primary Care Provider] - Disposition Disposition (needs filled in before D/C Order can be placed): Home, Self Care
[2023-12-02] MEDS: Ciprofloxacin 400 MG/200 ML BAG 200 MG IV (07:48)
[2023-12-02] MEDS: Ondansetron 4 MG/2 ML Vial IV (09:20)
[2023-12-02] MEDS: Bupivacaine 0.25% 30 ML Vial (09:29)
--- NOTE | 2023-12-02 09:43 | OP.PCM_ITS ---
Problems Associated Problem List Diagnoses (1) Adenomyosis: (2) Menstrual abnormality: (3) Obesity (BMI 30-39.9): Report of Operation Date of Procedure: 12/02/23 Pre-Operative Diagnosis: 33 y/o with adenomyosis, pelvic pain, and menorrhagia Post-Operative Diagnosis: 33 y/o with adenomyosis, pelvic pain, and menorrhagia Surgery/Procedure Performed:: total robotic hysterectomy, cystoscopy Description of Surgical Findings:: Findings: 9 cm size uterus, normal appearing ovaries and tubes. On exploration of the abdominal cavity the uterus, adnexa, bowel, and liver were found to be normal. Cystoscopy showed no evidence of leaking at approximately 250 cc of normal saline, positive ureteral orifices and jet flow are seen and no suture material was appreciated in the bladder. Surgeon: Deepa Oneill supervisor cap and hat production: Adán Dias Type of Anesthesia: General Anesthesiologist: El Carias Special Medications: none Specimen's removed: uterus and cervix Drains: none Estimated Blood Loss (mL): 30cc Description of Procedure: Specimens removed: Uterus and cervix Reason for surgery: This is a 33-year-old G3, P3 who presented to my office with history of heavy menses and ultrasound finding of adenomyosis. She also complained of back pain and pelvic discomfort. She had a tubal ligation previously and has tried OCPs and nuvaring wihout success. The planned procedure is for a robotic hysterectomy the risks benefits and alternatives were discussed with the patient the patient had a clear understanding of the procedure and a consent form was signed. Procedure: The patient was placed in the dorsal low lithotomy position and prepped and draped in the normal sterile fashion both abdominally and in the perineum. Her legs were placed in stirrups a Baca catheter was inserted into the urethra without difficulty. A weighted speculum was placed in the vagina and a single- tooth tenaculum was used to grasp the anterior lip of the cervix. An [employer] uterine manipulator was inserted through the cervix without complication. It was then tied into place at the 2 and 10:00 locations on the cervix. Gloves were changed and attention was turned towards the abdomen. Approximately 23 cm above the pubic symphysis in the midline, and after Marcaine injection, a 8 mm incision was made. An 8 mm trocar was inserted through the laparoscope, then inserted into the abdomen under direct visualization using the laparoscope. Good abdominal placement was noted and no complications were appreciated. An air seal device was utilized to create pneumoperitoneum. At 12 cm lateral to the midline on the left and right sides 8 mm accessory ports were placed. Next a left upper quadrant 8 mm water quality assistant port site was placed. The patient was placed in steep Trendelenburg position. The robot was docked. The hysterectomy was initiated first by taking down the round ligament on each side using the vessel sealer device. The broad ligament was then and taken down using the vessel sealer device. Next the bladder flap was taken down without complication. This was done using monopolar cautery to the level of the cervical vaginal junction. After the bladder flap was created, uterine vessels were then isolated and cauterized using the vessel sealer device and EndoShears. At this point the uterine vessels were taken down further starting from the ascending branch, dissecting along the edges of the cervix to the level of the cervical vaginal junction with hemostasis appreciated. The cervical vaginal junction was then using monopolar cautery in a circumferential pattern across the superior aspect of the cervix. The specimen was delivered through the vagina and sent to pathology. The remaining vaginal cuff was then closed using a V lock suture. This was performed in a running technique. Excellent hemostasis was obtained and good closure was noted. Irrigation was then performed. All operative sites were noted to be hemostatic. A cystoscopy was performed with a 70 degree cystoscope through the urethra into the bladder without complication. The bladder was instilled with approximately 250 cc of normal saline. Intraoperative images were made. Ureteral orifices and jet was seen easily from the left ureteral orifice, however the right was carey with minimal to no flow. A stitch at the cuff was removed and a flexible 28 inch whistle tip catheter was gently inserted into the ureter easily without resistance then removed after it reached 15 cm. once removed there was a positive jet of clear urine. No suture material was appreciated in the bladder. The bladder was then drained and cystoscope was removed. The abdominal cavity was again examined using the laparoscope after the robot was undocked. All operative sites were noted to be hemostatic. The trochars were removed under direct visualization without complication and pneumoperitoneum was reduced. At this point the skin was then closed using 4-0 Monocryl subcuticular stitch and sealed with surgical glue. The patient tolerated the procedure well sponge lap and needle counts were correct x2 the patient was taken to the recovery room in stable condition. Procedure Start Time: 07:50 Procedure Stop Time: 09:30 Complications none Admit VTE Documentation VTE Present on Admission: Yes VTE Mechan Device Prophylaxis: SCD's VTE Pharm Prophylaxis ordered?: No Multi Select Codes Urinary/Genital Urinary/Genital CPT Codes: 15873 Cystoscopy and 93016 TLH+BS/O <250gr uterus
[2023-12-02] MEDS: Lactated Ringers @ 70 MLS/HR 70 ML IV (09:45)
--- NOTE | 2023-12-02 09:58 | SUR.PHASEI ---
PT PAINFUL 07/01, DR KEBEDE AT BEDSIDE. OK TO GIVE 30 MG IV TORADOL X1. GIVEN PER ANESTHESIA ORDERS.
== END 2023-12-02 14:30 | disposition home or self-care (01) ==
LOC: SDC 05:29 → AC 05:30
PROVIDERS: Anesthesiology; PCP Internal Medicine; Referring Provider Internal Medicine; Visit Provider Obstetrics & Gynecology
PROC: 0UT90ZZ Resection of Uterus, Open Approach (ICD-10-PCS; CPT 58570; principal; 2023-12-02 07:10)
DX: N72 Inflammatory disease of cervix uteri (principal); N80.03 Adenomyosis of the uterus; N92.0 Excessive and frequent menstruation with regular cycle; E66.9 Obesity, unspecified; Z68.32 Body mass index [BMI] 32.0-32.9, adult; F32.A Depression, unspecified; F41.9 Anxiety disorder, unspecified; I10 Essential (primary) hypertension; K21.9 Gastro-esophageal reflux disease without esophagitis; G43.909 Migraine, unspecified, not intractable, without status migrainosus; Z79.899 Other long term (current) drug therapy
CPT/HCPCS: 58570; S2900; 00840; 36415; 81025; 82962; 83735; 85027; 86850; 86900; 86901; 88307; J7120; C1758; J0744; J2405; J3475

== ENCOUNTER → 2024-02-17 | Outpatient (CLI) | payer BC, SELFPAY ==
[2024-02-17 15:41] LABS: Absolute Lymphocyte Count 3.07 X10^3/uL (0.83-4.51); Basophil# 0.04 X10^3/uL; Basophil% 0.4 % (0-1); Eosinophil# 0.06 X10^3/uL; Eosinophils% 0.7 % (0-5); Hematocrit 41.3 % (37-47); Hemoglobin 13.4 g/dL (12.0-15.0); Lymphocyte # 3.07 X10^3/ul (0.83-4.51); Lymphocyte % 34.5 % (19-41); Mean Corp Hgb Conc 32.4 g/dL (32-36); Mean Corpuscular Hgb 27.6 pg (27.0-32.0); Mean Corpuscular Volume 85.2 fL (81-99); Mean Platelet Vol. 9.8 fl (6.2-12.0); Monocyte# 0.69 X10^3/uL; Monocyte% 7.7 % (0-10); NRBC Flagged by Analyzer 0 % (0-5); Neutrophil # 5.03 X10^3/uL (2.7-7.7); Neutrophil % 56.5 % (47-70); Platelet Count 284 K/mm3 (150-450); RBC Distribution Width CV 13.2 % (11.6-14.6); RBC Distribution Width SD 40.9 fl (35.1-43.9); Red Blood Count 4.85 M/mm3 (4.2-5.4); White Blood Count 8.9 K/mm3 (4.4-11.0)
[2024-02-17 16:06] LABS: AST(SGOT) 18 U/L (15-37); Alanine Aminotransfer ALT/SGPT 24 U/L (13-56); Albumin, Serum 3.9 g/dL (3.2-5.0); Alkaline Phosphatase 87 U/L (45-117); Anion Gap 7 (5-15); BUN 11 mg/dL (7-18); BUN/Creat Ratio 13.1 RATIO (10-20); Chloride 105 mmol/L (98-107); Creatinine, Serum 0.84 mg/dL (0.55-1.02); EST Glomerular Filtration Rate 84 mL/min (>60); Est Glom Filt Rate - Afr Amer 102 mL/min (>60); Globulin 3.9 g/dL (2.2-4.2); Glucose 86 mg/dL (74-106); Potassium 4.1 mmol/L (3.5-5.1); Protein, Total 7.8 g/dL (6.4-8.2); Sodium Level 134 mmol/L (136-145); Thyroid Stim Hormone (TSH) 1.23 uIU/mL (0.358-3.74)
[2024-02-19 14:10] LABS: ANTINUCLEAR ANTIBODIES DIRECT Negative (Negative)
== END | disposition home or self-care (01) ==
LOC: BIMLAB 12:05
PROVIDERS: PCP Internal Medicine; Visit Provider Physician Assistant
DX: M54.2 Cervicalgia (principal); G89.29 Other chronic pain; I95.9 Hypotension, unspecified
CPT/HCPCS: 36415; 80053; 84443; 85025; 86038; 86225; 86235

== ENCOUNTER → 2024-10-01 | Outpatient (CLI) | payer BC, SELFPAY ==
[2024-10-01 15:59] LABS: AST(SGOT) 14 U/L (15-37); Alanine Aminotransfer ALT/SGPT 25 U/L (13-56); Albumin, Serum 3.8 g/dL (3.2-5.0); Alkaline Phosphatase 95 U/L (45-117); Anion Gap 3 (5-15); BUN 9 mg/dL (7-18); BUN/Creat Ratio 10.9 RATIO (10-20); Calcium,Total 9.3 mg/dL (8.5-10.1); Chloride 105 mmol/L (98-107); Cholesterol 175 mg/dL (200); Creatinine, Serum 0.82 mg/dL (0.55-1.02); EST Glomerular Filtration Rate 86 mL/min (>60); Est Glom Filt Rate - Afr Amer 104 mL/min (>60); Globulin 3.8 g/dL (2.2-4.2); Glucose 93 mg/dL (74-106); High Density Lipoprotein 50 mg/dL; Protein, Total 7.6 g/dL (6.4-8.2); Sodium Level 136 mmol/L (136-145); Triglycerides 130 mg/dL; Very Low Density Lipoprotein 26 mg/dL (5-40)
== END | disposition home or self-care (01) ==
LOC: BIMLAB 11:47
PROVIDERS: PCP Internal Medicine; Referring Provider Internal Medicine; Visit Provider Internal Medicine
DX: I10 Essential (primary) hypertension (principal)
CPT/HCPCS: 36415; 80053; 80061

== ENCOUNTER → 2025-09-19 | Outpatient (CLI) | payer BC, SELFPAY ==
[2025-09-19 17:39] LABS: Hematocrit 44.5 % (37-47); Hemoglobin 14.7 g/dL (12.0-15.0); Immature Granulocytes Count 0.020 X10^3/uL (0.0-0.0); Mean Corp Hgb Conc 33.0 g/dL (32-36); Mean Corpuscular Volume 86.1 fL (81-99); Mean Platelet Vol. 9.9 fl (6.2-12.0); NRBC Flagged by Analyzer 0 % (0-5); Platelet Count 260 K/mm3 (150-450); RBC Distribution Width CV 11.8 % (11.6-14.6); RBC Distribution Width SD 37.1 fl (35.1-43.9); Red Blood Count 5.17 M/mm3 (4.2-5.4); White Blood Count 8.2 K/mm3 (4.4-11.0)
[2025-09-19 17:46] LABS: Color, Urine Yellow (Yellow); Glucose, Dipstick Normal (Normal); Ketone-Dipstick Negative (Negative); Leukocyte Esterase-Dipstick 100 /ul (Negative); Nitrite-Dipstick Positive (Negative); Occult Blood-Urine 10 /ul (Negative); Protein-Dipstick 30 mg/dl (Negative); Specific Gravity, Urine 1.025 (1.002-1.030); Urine Bilirubin Dipstick Negative (Negative)
[2025-09-19 19:32] LABS: AST(SGOT) 18 U/L (<=31); Alanine Aminotransfer ALT/SGPT 15 U/L (<=34); Albumin, Serum 4.6 g/dL (3.5-5.0); Alkaline Phosphatase 62 U/L (35-104); Anion Gap 12 (7-18); BUN 9 mg/dL (4-19); BUN/Creat Ratio 8.8 RATIO (10-20); Calcium,Total 9.4 mg/dL (7.6-11.0); Carbon Dioxide 25.7 mmol/L (20.0-29.0); Chloride 102 mmol/L (96-106); Globulin 3.0 g/dL (2.2-4.2); Glucose 93 mg/dL (70-99); Potassium 3.6 mmol/L (3.5-5.1)
[2025-09-19 19:33] LABS: CRP < 3.00 mg/L (0.0-3.0)
[2025-09-19 20:11] LABS: Mucous, Urine 1+ /hpf (<or=2+); Red Blood Cells-Urine 10-25 SEEN /hpf (0-5); Squamous Epithelial Cells - UA 25-50 SEEN /hpf (5-10)
[2025-09-19 20:12] LABS: Calcium Oxalate Crystals Ur 2+ /hpf (<or=2+)
[2025-09-21 15:08] LABS: Anti-Chromatin <0.2 AI (0.0-0.9); Anti-Jo <0.2 AI (0.0-0.9); Anti-dsDNA Ab 1 IU/mL (0-9); SJOGREN'S Anti-SS-A test < 0.2 AI (0.0-0.9); SJOGREN'S Anti-SS-B test < 0.2 AI (0.0-0.9)
[2025-09-23 15:08] LABS: Albumin 4.1 g/dL (2.9-4.4); Gamma Globulin 1.3 g/dL (0.4-1.8); Immunoglobulin A 384 mg/dL (87-352); Immunoglobulin G 1216 mg/dL (586-1602); Immunoglobulin M 154 mg/dL (26-217); PROEL- TOTAL PROTEIN 7.3 g/dL (6.0-8.5)
== END | disposition home or self-care (01) ==
LOC: MTLAB 16:19
PROVIDERS: PCP Internal Medicine; Referring Provider Internal Medicine; Visit Provider Internal Medicine
DX: R82.998 Other abnormal findings in urine (principal); R63.4 Abnormal weight loss
CPT/HCPCS: 36415; 80053; 81001; 82784; 84165; 84443; 85025; 85652; 86140; 86225; 86235; 86334; 87077; 87086; 87088; 87186